=== PATIENT | female | born 1935 | race Caucasian/White ===

== ENCOUNTER 2017-05-22 14:54 | Emergency (ER) | payer MEDICARE, BC, OTHER ==
[2017-05-22] MEDS ORDERED: Acetaminophen 500 MG TAB ONE (15:49)
[2017-05-22] MEDS ORDERED: Ibuprofen 800 MG TAB ONE (15:52)
--- NOTE | 2017-05-22 16:20 | RAD ---
RADIOGRAPH CHEST 1 VIEW: HISTORY: An 81-year-old female with cough. FINDINGS: There is hyperinflation of the lungs, consistent with COPD. The thoracic aorta is tortuous and ectat ic. There is no evidence of air space density, pneumothorax, or pulmonary edema. The lateral costop hrenic angles are sharp. IMPRESSION: 1) No acute pulmonary findings. 2) Emphysema. 3) Ectasia of thoracic aorta. pooja [] POS: [facility]
[2017-05-22 16:26] LABS: #Lymphocytes 0.9 thou/uL (1.20-3.40); #Monocytes 0.8 thou/uL (0.11-0.59); #Neutrophils 8.4 thou/uL (1.40-6.50); %Eosinophils 0.4 % (0.0-10.0); %Monocytes 8.2 % (0.0-10.0); %Neutrophils 82.4 % (42.0-75.0); Hemoglobin 11.6 g/dL (12.0-16.0); Mean Corpuscular HGB CONC 32.5 g/dL (32.0-36.0); Mean Corpuscular Hemoglobin 29.3 pg (27.0-31.0); Mean Corpuscular Volume 90.1 fl (81.0-99.0); Mean Platelet Volume 6.2 fL (7.4-10.4); Platelet Count 184 thou/uL (130-400); Red Blood Cell (RBC) Count 3.96 mill/uL (4.20-5.40); White Blood Cell (WBC) Count 10.2 thou/uL (4.8-10.8)
[2017-05-22 16:49] LABS: ALT (SGPT) 31 U/L (8-55); AST (SGOT) 63 U/L (5-34); Albumin 3.2 g/dL (3.4-4.8); Alkaline Phosphatase 58 U/L (40-150); Anion Gap 13 mmol/L (10-20); BUN (Urea Nitrogen) 16 mg/dL (9.8-20.1); Calc. Creatinine Clearance 0 mL/min (70-130); Calcium 8.8 mg/dL (7.8-10.44); Carbon Dioxide 23 mmol/L (23-31); Chloride 101 mmol/L (98-107); Estimated GFR-MDRD 65; Globulin 3.7 g/dL (2.4-3.5); Glucose 87 mg/dL (83-110); Potassium 4.2 mmol/L (3.5-5.1); Protein, Total 6.9 g/dL (6.0-8.3); Sodium 133 mmol/L (136-145)
== END 2017-05-22 18:28 | disposition home or self-care (01) ==
LOC: ERS 14:54
DX: J11.1 Influenza due to unidentified influenza virus with other respiratory manifestations (principal); I48.91 Unspecified atrial fibrillation; E03.9 Hypothyroidism, unspecified; E11.9 Type 2 diabetes mellitus without complications; I10 Essential (primary) hypertension; Z87.891 Personal history of nicotine dependence; Z79.4 Long term (current) use of insulin; Z79.899 Other long term (current) drug therapy
CPT/HCPCS: 36415; 71045; 80053; 85025

== ENCOUNTER 2017-07-16 15:02 | Outpatient (CLI) | payer MEDICARE, BC, OTHER ==
[~2017-07-16 15:02] MED LIST: Iopamidol 370 76% 100 ML VIAL ONE
--- NOTE | 2017-07-16 16:44 | CT ---
CT BRAIN WITH AND WITHOUT IV CONTRAST: History: Dementia, worsening of the last few months. Patient has history of breast cancer in 1989. FINDINGS: There are changes of chronic small vessel ischemic disease in the periventricular white matter. The v entricular size is appropriate and the basal cisterns are patent. No evidence of infarct, hemorrhage, mass, midline shift, or abnormal extraaxial fluid collections are seen. No abnormal post contrast en hancement is identified. The bony calvarium is intact. The visualized paranasal sinuses and mastoid a ir cells are well aerated. IMPRESSION: No CT evidence of acute intracranial process or mass. POS: [facility]
== END 2017-07-16 15:03 | disposition home or self-care (01) ==
LOC: SCSCT 15:02
PROVIDERS: ATTEND Internal Medicine
DX: F03.90 Unspecified dementia, unspecified severity, without behavioral disturbance, psychotic disturbance, mood disturbance, and anxiety (principal)
CPT/HCPCS: 70470

== ENCOUNTER 2017-07-24 11:43 | Emergency (ER) | payer MEDICARE, BC, OTHER ==
[2017-07-24 12:46] LABS: #Basophils 0.1 thou/uL (0.0-0.2); #Lymphocytes 1.8 thou/uL (1.20-3.40); #Monocytes 0.6 thou/uL (0.11-0.59); #Neutrophils 6.6 thou/uL (1.40-6.50); %Basophils 0.9 % (0.0-1.0); %Eosinophils 0.5 % (0.0-10.0); %Monocytes 6.6 % (0.0-10.0); %Neutrophils 71.9 % (42.0-75.0); Hemoglobin 11.2 g/dL (12.0-16.0); Mean Corpuscular HGB CONC 31.9 g/dL (32.0-36.0); Mean Corpuscular Hemoglobin 27.1 pg (27.0-31.0); Mean Corpuscular Volume 85.1 fl (81.0-99.0); Mean Platelet Volume 6.3 fL (7.4-10.4); Platelet Count 175 thou/uL (130-400); RBC Distribution Width 13.9 % (11.5-14.5); Red Blood Cell (RBC) Count 4.13 mill/uL (4.20-5.40); White Blood Cell (WBC) Count 9.2 thou/uL (4.8-10.8)
[2017-07-24 12:56] LABS: Anion Gap 14 mmol/L (10-20); BUN (Urea Nitrogen) 11 mg/dL (9.8-20.1); Calc. Creatinine Clearance 0 mL/min (70-130); Calcium 8.8 mg/dL (7.8-10.44); Carbon Dioxide 28 mmol/L (23-31); Chloride 102 mmol/L (98-107); Estimated GFR-MDRD 59; Glucose 213 mg/dL (83-110); Sodium 140 mmol/L (136-145)
[2017-07-24] MEDS ORDERED: Sodium Chloride 0.9% 100 ML ONE (13:34)
[2017-07-24] MEDS ORDERED: Furosemide 40 MG/4 ML VIAL ONE (13:34)
[2017-07-24] MEDS ORDERED: CEFAZOLIN 1 GM VIAL ONE (13:34)
--- NOTE | 2017-07-24 13:34 | ULT ---
BILATERAL LOWER EXTREMITY VENOUS DOPPLER ULTRASOUND: Date: 07/24/17 HISTORY: Bilateral lower extremity edema, left-sided pain. TECHNIQUE: Chavez scale ultrasound with color flow and spectral Doppler imaging of the deep venous systems of the lower extremities was performed bilaterally. FINDINGS: There is good flow, compression, and augmentation noted in the common femoral, femoral, deep femoral, popliteal, posterior tibial, and greater saphenous veins on either side. IMPRESSION: No evidence of deep venous thrombosis in either lower extremity. POS: [facility]
== END 2017-07-24 14:32 | disposition home or self-care (01) ==
LOC: SCSER 11:43
DX: R60.0 Localized edema (principal); I48.91 Unspecified atrial fibrillation; E03.9 Hypothyroidism, unspecified; E11.9 Type 2 diabetes mellitus without complications; I10 Essential (primary) hypertension; Z87.891 Personal history of nicotine dependence; Z79.84 Long term (current) use of oral hypoglycemic drugs; Z79.899 Other long term (current) drug therapy
CPT/HCPCS: 36415; 80048; 83880; 85025; 93970; 96365; 96375; J0690; J1940; J7050

== ENCOUNTER 2017-10-29 12:32 | Outpatient (CLI) | payer MEDICARE, BC, OTHER | END 2017-10-29 12:33 | disposition home or self-care (01) | LOC: ULT 12:32 | PROVIDERS: ATTEND Internal Medicine | DX: R01.1 Cardiac murmur, unspecified (principal); I08.2 Rheumatic disorders of both aortic and tricuspid valves | CPT/HCPCS: 93306 ==

== ENCOUNTER 2017-12-09 19:34 | Inpatient (IN) | payer MEDICARE, BC, OTHER ==
[2017-12-09 20:09] LABS: Bilirubin Negative (Negative); Blood, Urine Negative (Negative); Clarity CLEAR (Clear); Glucose, Urine (Dipstick) Negative (Negative); Leukocyte Negative (Negative); Nitrite Negative (Negative); Protein, Urine (Dipstick) 300 mg/dL (Neg-Trace); Specific Gravity, Urine 1.011 (1.002-1.036); Urobilinogen 0.2 mg/dL (0.2-1.0)
[2017-12-09 20:12] LABS: Bacteria/HPF None Seen HPF (None Seen); Hyaline Casts/LPF 4-6 HYALINE CAST LPF (0-3 Hyaline); Pathc Cast-AUWi Flag 1.01 (0-2.49); RBC/HPF 0-3 HPF (0-3); Squamous Epithelial 0-3 HPF (0-3); WBC/HPF 0-3 HPF (0-3)
[2017-12-09 20:18] LABS: #Eosinphils 0.1 thou/uL (0.0-0.7); #Lymphocytes 2.6 thou/uL (1.20-3.40); #Monocytes 0.9 thou/uL (0.11-0.59); #Neutrophils 7.2 thou/uL (1.40-6.50); %Basophils 0.4 % (0.0-1.0); %Eosinophils 1.3 % (0.0-10.0); %Lymphocytes 23.7 % (21.0-51.0); %Monocytes 7.9 % (0.0-10.0); %Neutrophils 66.6 % (42.0-75.0); Hemoglobin 10.6 g/dL (12.0-16.0); Mean Corpuscular HGB CONC 33.3 g/dL (32.0-36.0); Mean Corpuscular Hemoglobin 27.5 pg (27.0-31.0); Mean Corpuscular Volume 82.5 fL (78.0-98.0); Mean Platelet Volume 6.5 fL (7.4-10.4); Platelet Count 209 thou/uL (130-400); RBC Distribution Width 13.9 % (11.5-14.5); Red Blood Cell (RBC) Count 3.85 mill/uL (4.20-5.40); White Blood Cell (WBC) Count 10.7 thou/uL (4.8-10.8)
[2017-12-09 20:39] LABS: ALT (SGPT) 18 U/L (8-55); AST (SGOT) 26 U/L (5-34); Albumin 3.6 g/dL (3.4-4.8); Alkaline Phosphatase 95 U/L (40-150); Anion Gap 16 mmol/L (10-20); BUN (Urea Nitrogen) 16 mg/dL (9.8-20.1); Bilirubin, Total 0.4 mg/dL (0.2-1.2); Calc. Creatinine Clearance 0 mL/min (70-130); Calcium 8.8 mg/dL (7.8-10.44); Carbon Dioxide 22 mmol/L (23-31); Chloride 103 mmol/L (98-107); Estimated GFR-MDRD 53; Globulin 3.8 g/dL (2.4-3.5); Glucose 141 mg/dL (83-110); Potassium 4.7 mmol/L (3.5-5.1); Protein, Total 7.4 g/dL (6.0-8.3); Sodium 136 mmol/L (136-145)
[2017-12-09 20:42] LABS: CKMB 1.8 ng/mL (0-6.6)
[2017-12-09 20:44] LABS: Troponin I 0.306 ng/mL (< 0.028)
--- NOTE | 2017-12-09 20:55 | CT ---
CT OF THE BRAIN WITHOUT CONTRAST: 12/09/17 HISTORY: Syncope, fall. FINDINGS: Comparison is made with exam of 11/03/16. Changes of chronic small vessel ischemic disease are again noted. The ventricular size is stable and the basilar cisterns patent. No evidence of acute infarct, hemorrhage, midline shift or abnormal extr a-axial fluid collections are seen. The bony calvarium is intact. The visualized paranasal sinuses an d mastoid air cells are well aerated. Soft tissue hematoma is seen in the right orbital region. IMPRESSION: No CT evidence of acute intracranial process. POS: [facility]
--- NOTE | 2017-12-09 20:57 | RAD ---
PORTABLE CHEST ONE VIEW: 12/09/17 at 8:25 p.m. HISTORY: Syncope. FINDINGS: comparison is made with the exam of 10/06/14. The heart size is borderline. The aorta is tortuous. The lungs are well expanded without lobar consol idation, pneumothoraces or pleural effusions. There are postop changes in the lower cervical spine. IMPRESSION: No radiographic evidence of acute cardiopulmonary process. POS: [facility]
--- NOTE | 2017-12-09 21:02 | CT ---
CT CERVICAL SPINE WITH CORONAL AND SAGITTAL REFORMATIONS: 12/09/17 HISTORY: Fall, neck pain. FINDINGS/IMPRESSION: Multilevel degenerative changes are present. There are postop changes of anterior spinal fusion with plate and screws at C5-6-7 levels in good position and alignment. Calcification of the posterior long itudinal ligament at C3-4 level is again noted as on 12/07/13. No acute fracture or subluxation is rommel ntified. No facet malalignment is noted. POS: [facility]
--- NOTE | 2017-12-09 21:04 | CT ---
CT FACIAL BONES WITH CORONAL AND SAGITTAL REFORMATIONS: 12/09/17 HISTORY: Fall, trauma to the face, right sided facial pain. FINDINGS/IMPRESSION: The facial bones appear intact. No facial bone fracture is seen. No temporomandibular dislocation is identified. Soft tissue hematoma is seen in the right lateral orbital and periorbital regions. POS: [facility]
[2017-12-09] MEDS ORDERED: Aspirin 325 MG TAB ONE (21:29)
[2017-12-09] MEDS ORDERED: Nitroglycerin 2% Ointment 1 INCH/1 GM Packet ONE (21:52)
[2017-12-09 22:19] LABS: Digoxin 1.05 ng/mL (0.8-2.0)
[2017-12-09 23:35] LABS: Troponin I 0.327 ng/mL (< 0.028)
[2017-12-10] MEDS ORDERED: hydrALAZINE 20 MG/ML VIAL ONE (01:11)
[2017-12-10] MEDS ORDERED: Ondansetron HCl/PF 4 MG/2 ML Vial IVP PRN (02:48)
[2017-12-10] MEDS ORDERED: Acetaminophen 325 MG TAB PO PRN ×2 (02:48→03:00)
[2017-12-10] MEDS ORDERED: Ondansetron ODT 4 MG TAB SL PRN (02:48)
[2017-12-10] MEDS ORDERED: Cyclobenzaprine 10 MG TAB PO PRN (03:00)
[2017-12-10] MEDS ORDERED: Nitroglycerin 0.4 MG TAB (25 Tab Bottle) SL PRN (03:00)
[2017-12-10] MEDS: Labetalol HCl 100 MG/20 ML VIAL IVPB PRN ×2 (03:31→09:14)
[2017-12-10 03:59] VITALS: BMI 28.4
[2017-12-10] MEDS ORDERED: Dextrose 5% in Water 1,000 ML IV PRN (04:35)
[2017-12-10] MEDS ORDERED: Dextrose 50% Abboject 50 ML SYRINGE SLOW IVP PRN (04:35)
[2017-12-10 05:43] LABS: #Eosinphils 0.1 thou/uL (0.0-0.7); #Lymphocytes 2.5 thou/uL (1.20-3.40); #Monocytes 0.8 thou/uL (0.11-0.59); #Neutrophils 6.4 thou/uL (1.40-6.50); %Basophils 0.3 % (0.0-1.0); %Eosinophils 1.5 % (0.0-10.0); %Monocytes 7.7 % (0.0-10.0); %Neutrophils 65.6 % (42.0-75.0); Hemoglobin 9.8 g/dL (12.0-16.0); Mean Corpuscular HGB CONC 32.9 g/dL (32.0-36.0); Mean Platelet Volume 6.4 fL (7.4-10.4); Platelet Count 198 thou/uL (130-400); RBC Distribution Width 14.2 % (11.5-14.5); Red Blood Cell (RBC) Count 3.61 mill/uL (4.20-5.40); White Blood Cell (WBC) Count 9.8 thou/uL (4.8-10.8)
[2017-12-10 05:55] LABS: Anion Gap 13 mmol/L (10-20); BUN (Urea Nitrogen) 13 mg/dL (9.8-20.1); Calc. Creatinine Clearance 68 mL/min (70-130); Carbon Dioxide 25 mmol/L (23-31); Chloride 105 mmol/L (98-107); Estimated GFR-MDRD 64; Glucose 146 mg/dL (83-110); Potassium 3.9 mmol/L (3.5-5.1); Sodium 139 mmol/L (136-145)
[2017-12-10] MEDS ORDERED: Levothyroxine 150 MCG TAB PO SCH (06:00)
[2017-12-10 06:01] LABS: Critical Call Chem Troponin I RESULT DECREASING; Troponin I 0.322 ng/mL (< 0.028)
[2017-12-10] MEDS ORDERED: Rivaroxaban 10 MG TAB PO SCH (09:00)
[2017-12-10] MEDS: HYDROcodone/Acetaminophen 5/325 mg Tablet PO PRN ×2 (09:10→16:30)
[2017-12-10] MEDS: Digoxin 0.25 MG TAB PO SCH (09:13)
--- NOTE | 2017-12-10 10:20 | HP ---
TIME OF EVALUATION: 01:05 a.m. PRIMARY CARE PHYSICIAN: Dr. Harper. CODE STATUS: FULL CODE. CHIEF COMPLAINT: Fall. HISTORY OF PRESENT ILLNESS: This is an 82-year-old female patient with past medical history of breas t cancer, atrial fibrillation, hypothyroidism, diabetes, hypertension, who came to the hospital after having an episode of fall, she reported she was carrying some groceries, she got lightheaded and fel l, she does not recall complete loss of consciousness, no clear triggers, no alleviating factors. In the past, the patient had been treated for atrial fibrillation; at this time, the patient reported n o palpitations, no clear triggers, no alleviating factors. The symptoms had a sudden onset. Of note , the patient is troponin was found to be 0.3. For that reason, we are going to keep her in [facility]. She follows with Dr. Cifuentes who is her grades 1 thru 6 visiting teacher as outpatient. She was also found to have high blood pressure on presentation. REVIEW OF SYSTEMS: Constitutional: No fever, no chills, generalized weakness. Respiratory: No cou gh or sputum production or shortness of breath. Cardiovascular: No chest pain, palpitations, or rigo rtness of breath. Gastrointestinal: No nausea, no vomiting, diarrhea, or abdominal pain. Central N ervous System: The patient has dizziness, feeling lightheaded, possible near syncope. Genitourinary : No burning on urination. Extremities: Bilateral leg swelling. All other systems reviewed and ne gative except for the findings mentioned above. PAST MEDICAL HISTORY: Positive for breast cancer, hypothyroidism, atrial fibrillation, diabetes, hyp ertension. PAST SURGICAL HISTORY: The patient had bilateral knee replacement, cardiac catheterization, left mas tectomy, appendectomy, cholecystectomy. PSYCHIATRIC HISTORY: Depression. SOCIAL HISTORY: No drugs, no alcohol. ALLERGIES: BACTRIM. REPORTED MEDICATIONS: Metformin, Eliquis, lisinopril, atorvastatin, Zetia, levothyroxine, cephalexin , Singulair, digoxin, [place], Levemir, Humalog, clobetasol, Zoloft. PHYSICAL EXAMINATION: VITAL SIGNS: On presentation, blood pressure 188/143 with heart rate 57, respiratory rate was 15, te mperature 98.6, pain 6/10, O2 saturation 95 on room air. GENERAL APPEARANCE: The patient is alert, oriented, in no any acute distress. HEAD AND EYES: Normal conjunctivae. Moist oral mucosa. Anicteric. The patient has trauma on the r ight forehead due to the fall. NECK: No JVD. RESPIRATORY: Bilateral air entry. No rales, no wheezes. Symmetric expansion. CARDIOVASCULAR: Normal rate, regular rhythm. No murmurs, no gallop. EXTREMITIES: Bilateral leg edema. ABDOMEN: Soft, normal bowel sounds. MUSCULOSKELETAL: Baseline range of motion and strength. No tenderness. SKIN: Warm and intact. No pallor, no rash, no redness. NEUROLOGIC: Baseline sensorium. No evidence of any new focal weakness. Baseline speech. Cranial n erve seems to be intact. PSYCHIATRIC: The patient is in good mood. No anxiety. Oriented. Optimal judgement. DIAGNOSTIC DATA: EKG was reviewed and discussed with the performing physician from ER. The patient has atrial fibrillation with a junctional pacemaker, left anterior fascicular block, minimal voltage for LVH, nonspecific ST-T wave abnormalities. No evidence of any acute ischemic event. Cardiology w as reviewed. The patient's head CT was negative, Neck, cervical spine, CT head negative. Chest film s are negative, interpretation by my radiologist. LABORATORY DATA: Reviewed. White count 10, hemoglobin 10, MCV 82, platelet count 209,000. Sodium 1 36, potassium 4.7, chloride 103, carbon dioxide 22, anion gap 16, creatinine 1.0, GFR 53, glucose 141 . LFTs are negative. Troponin 0.3. UA was negative. Digoxin 1.0. ASSESSMENT AND PLAN: The patient will be placed in the hospital for the following medical problem: 1. Positive troponin, possible Mac-LC-[id number] myocardial infarction type 2. Due to underlying hyp ertension, underlying atrial fibrillation, we will trend troponins less than 03, call Dr. Cifuentes in the morning for customer care assistant with this case and overall recommendations. We will reconcile home medica tions. 2. Possible near syncope, monitor on tele, pacemaker seems to be working. We will follow Cardiology recommendations. Echo was done in 10/2017 and showed EF 50-55%. Left ventricular size is mildly in creased, aortic valve calcification. 3. Status post fall, patient will need to increase safety measures at home. 4. History of atrial fibrillation/flutter, patient is on Eliquis and will continue for now. 5. Uncontrolled hypertension, reconcile home medication, IV p.r.n. medications for tumor control. 6. Hypothyroidism, reconcile home medications. 7. History of diabetes, it is controlled. We will reconcile home meds, sliding scale for optimal co ntrol. 8. Deep venous thrombosis prophylaxis, the patient is on Eliquis.
--- NOTE | 2017-12-10 14:45 | PDOC.PN ---
- Subjective Encounter Start Date: 12/10/17 Encounter Start Time: 14:30 Subjective: f/u for fall and elevated troponins. States feeling hungry. No CP or SOB -: Hx of falls recently - Objective Resuscitation Status: Resuscitation Status FULL:Full Resuscitation MAR Reviewed: Yes Vital Signs & Weight: Vital Signs (12 hours) Temp Pulse Resp BP BP Pulse Ox 12/10/17 11:07 98.3 F 58 L 16 174/70 H 95 12/10/17 10:13 178/75 H 12/10/17 09:14 68 199/83 H 12/10/17 09:13 68 12/10/17 08:15 98.3 F 58 L 16 93 L 12/10/17 07:45 97.8 F 68 16 199/83 H 93 L 12/10/17 04:00 98.5 F 66 23 H 183/78 H 92 L 12/10/17 03:31 68 186/85 H 12/10/17 02:52 98.5 F 66 23 H 186/85 H 98 Weight Weight 181 lb 12.8 oz Result Diagrams: 12/10/17 05:20 12/10/17 05:20 Additional Labs: Accuchecks 12/10/17 05:45 POC Glucose 147 H Laboratory Tests 12/09/17 12/09/17 12/09/17 20:08 20:08 20:08 WBC 10.7 Hgb 10.6 L Creatinine 1.00 Estimated GFR (MDRD) 53 Troponin I 0.306 H* Digoxin 12/09/17 12/09/17 12/10/17 20:08 22:59 05:20 WBC Hgb Creatinine Estimated GFR (MDRD) Troponin I 0.327 H* 0.322 H* Digoxin 1.05 Radiology Reviewed by me: Yes (CT brain - negative) EKG Reviewed by me: Yes (Tele - SR, PVC's) Phys Exam - Physical Examination Constitutional: NAD R periorbital hematoma HEENT: PERRLA, sclera anicteric, oral pharynx no lesions Neck: no nodes, no JVD, supple, full ROM Respiratory: no wheezing, no rales, no rhonchi, clear to auscultation bilateral II/ JOANNA in RUSB Cardiovascular: RRR, no rub, gallop Gastrointestinal: soft, non-tender, no distention, positive bowel sounds Musculoskeletal: no edema, pulses present Neurological: non-focal, normal sensation, moves all 4 limbs Psychiatric: normal affect, A&O x 3 Skin: normal turgor, cap refill <2 seconds Dx/Plan (1) Near syncope Status: Acute Comment: ? syncope vs fall, check carotid sono, orthrostatic vitals, check TSH, FT4, Tele monitoring (2) Closed head injury Code(s): S09.90XA - UNSPECIFIED INJURY OF HEAD, INITIAL ENCOUNTER Status: Acute Comment: s/p fall, local care, PT evaluation (3) NSTEMI (non-ST elevated myocardial infarction) Code(s): I21.4 - NON-ST ELEVATION (NSTEMI) MYOCARDIAL INFARCTION Status: Acute Comment: Suspected, Cardiology consultation, ASA 81mg daily (4) HTN (hypertension) Code(s): I10 - ESSENTIAL (PRIMARY) HYPERTENSION Status: Chronic Qualifiers: Hypertension type: essential hypertension Qualified Code(s): I10 - Essential (primary) hypertension Comment: Labile, confirm home BP regimen, serial monitoring (5) Falls Code(s): W19.XXXA - UNSPECIFIED FALL, INITIAL ENCOUNTER Status: Acute Comment: Recurrent falls, PT/OT evaluation, fall risk precautions - Plan plan discussed w/ family, PT/OT, mental health social worker, out of bed/ambulate, DVT proph w/SCDs Stable currently -: ASA 81mg daily -: Cardiology consult pending -: Check Carotid sono, orthostatic vitals -: AM lab: BMP, CBC, TSH, FT4, Stool hemoccult * .
[2017-12-10] MEDS ORDERED: Sodium Chloride 0.9% 1,000 ML IV SCH (15:00)
--- NOTE | 2017-12-10 16:24 | ULT ---
ULTRASOUND DOPPLER DUPLEX CAROTID: 12/10/17 HISTORY: 82-year-old female with near syncopal episode and fall. TECHNIQUE: Chavez scale, color flow and spectral analysis, of major arteries of the neck. FINDINGS: There is moderate calcified plaque at the bilateral proximal internal carotid arteries, including the ir origins at the carotid bulbs, and also at proximal external carotid arteries. Highest peak systolic velocities in the internal carotids are 65 cm/s on the right and 70 cm/s on the left. ICA/CCA ratios are bilaterally 0.9. Vertebral artery flow is antegrade bilaterally. IMPRESSION: 1. Atherosclerotic plaque at the bilateral carotid bulbs. 2. No evidence of hemodynamically significant stenosis. POS: [facility]
[2017-12-10] MEDS: Insulin Regular 300 UNITS/3 ML VIAL SC PRN ×2 (18:18→21:09)
[2017-12-10] MEDS ORDERED: Simvastatin 40 MG TAB PO SCH (21:00)
[2017-12-10] MEDS ORDERED: Lisinopril 10 MG TAB PO SCH (21:00)
[2017-12-10] MEDS: Lisinopril 20 MG TAB PO SCH (21:07)
[2017-12-11] MEDS ORDERED: HYDROcodone/Acetaminophen 7.5/325 mg Tablet PO PRN (03:00)
--- NOTE | 2017-12-11 03:17 | CON ---
DATE OF CONSULTATION: 12/10/2017 HISTORY: Charlotte Kirkland is an 82-year-old, white female, initially evaluated in 07/1999 at [facility]. She had chest pain for 3-4 days, chest heaviness at rest or with exertion. This would last for 30 minutes, radiating to her left arm, sometimes left side of her face. She had episodes of diaphoresis, but no nausea or vomiting. Ultimately, she underwent cardiac catheterization and was found to have minimal coronary artery disease. She was seen again at [facility] in 07/2009 when she presented with atrial fibrillation with fast ventricular response. Echocardiogram revealed an ejection fraction of 55%-60% with left atrium of 4.0 cm. She underwent Cardiolite testing, which revealed no reversible ischemia. However, ultimately , the decision was made to have her undergo cardiac catheterization, which revealed a 30% mid LAD, 10% proximal circumflex, 20% proximal RCA, 30% mid RCA, and 30% right posterior descending. Ejection fraction was 50% to 55%. She was discharged on a 30-day monitoring and continued to have episodes of paroxysmal atrial fibrillation. She was referred to the trading manager in 08/2009. At that time, she was on verapamil and digoxin, which did not seem to totally control her atrial fibrillation. She was started on flecainide 50 b.i.d. I did not see her again until 07/2013 when she presented with an episode of near syncope at home. She had been feeling weak and was found to be in atrial fibrillation with fast ventricular response of 147 per minute. She was admitted and stated that she was only taking flecainide 50 daily instead of b.i.d. because it made her dizzy. She was very evasive about how long she had not been taking it daily. She was admitted and placed on IV Cardizem and converted to sinus rhythm. Echo was technically difficult with ejection fraction of 55%-60%, aortic valvular fibrosis, mitral annular calcification, moderate mitral regurgitation, mild aortic insufficiency, and mild tricuspid regurgitation. We discussed medical therapy versus radiofrequency ablation. She decided to take the flecainide on a regular b.i.d. basis. She was on Xarelto at that time. After discharge, she continued to have episodes of atrial fibrillation. In 07/2013, she presented with a rapid heart rate, shortness of breath, and associated chest pressure. Cardiac enzymes were negative. Chest pain resolved once her rate was controlled. She was placed on intravenous Cardizem and began to have more atrial flutter. She underwent radiofrequency ablation of the atrial flutter and electrical cardioversion of her atrial fibrillation. Sotalol was also added. With sotalol and flecainide, her heart rate dropped into the 30s, and the flecainide was discontinued. In 01/2014, she was seen in the office and only complained of dyspnea on exertion when she walked very fast. She continued to remain in sinus rhythm on the sotalol. In 02/2014, she was admitted after eating pancakes at night and then she felt her heart beating rapidly. She had some chest pressure associated with that. She was found to be in atrial fibrillation with fast ventricular response, placed on Cardizem drip. She continued to take the Xarelto as well as sotalol at home. She then underwent transesophageal echo by Dr. Enciso and had no intracardiac thrombus. She underwent DC cardioversion and had sinus bradycardia. Then, in 04/2014, she underwent a atrial fibrillation ablation in [place]. She was continued on her sotalol. In 08/2014, she was admitted with shortness of breath and O2 saturations in the 80s. She was treated with IV Rocephin. She stated that during the 6 months prior to that admission, she continued to have breakthrough episodes that will last anywhere from several minutes to all night long with the atrial fibrillation. In 09/2014, she had increased cough, placed on Ceftin 500 b.i.d. by primary physician. She returned several days later with increasing mental status changes, worsening shortness of breath, and was admitted. Sotalol was discontinued due to interaction with the antibiotics that needed to be given. She was then noted to have heart rate in the 170s to 180s. EKG revealed a narrow complex tachycardia. She was transferred to telemetry and started on IV Cardizem. In 12/2014, she underwent radiofrequency ablation of atrial flutter in [place]. In 09/2016, she underwent monitoring and was found to have frequent episodes of atrial fibrillation, although the rate was fairly well controlled. She was last seen in the office in 10/2016, and she was to return 4 months later for followup, but never did. She is uncertain if she has episodes of arrhythmias at home, but does notice at that time to have chest pressure at rest and may last up to 30 minutes. Yesterday, she was carrying groceries and states that she tripped over her feet and fell to the floor, striking her head. She remembers falling. She remembers hitting the floor. She has not had any recent chest discomfort, did not have any yesterday. She has had somewhat elevated troponin I. Cardiology consultation was requested. PAST MEDICAL HISTORY: Diabetes, paroxysmal atrial fibrillation, history of atrial flutter, hypertension, hypercholesterolemia, mild coronary artery disease , breast cancer. OPERATIONS: Left modified mastectomy for breast cancer, bilateral total knee replacements, appendectomy. She had gross hematuria and had a negative cystoscopy, cholecystectomy. MEDICATIONS: Flexeril p.r.n., digoxin 0.25 daily, Humalog p.r.n., hydrocodone p.r.n., Lantus 30 units q.p.m., Synthroid 150 mcg daily, lisinopril 10 at bedtime, metformin 1000 mg b.i.d., nitroglycerin p.r.n., Xarelto 20 daily, simvastatin 40 at bedtime. ALLERGIES: BACTRIM. SOCIAL HISTORY: She smoked 2-3 packs per day, but stopped 33 years ago. She does not drink. FAMILY HISTORY: Father had myocardial infarction in his 60s and 70s. Brother had bypass surgery. Another brother and sister had cardiomyopathy. REVIEW OF SYSTEMS: A 12-point review of systems is otherwise unremarkable. PHYSICAL EXAMINATION: VITAL SIGNS: Blood pressure 176/70, pulse of 55. HEENT: PERRL. She does have hematoma and ecchymosis on the right side of her scientologist area. LUNGS: Clear. CARDIAC: S1, S2 were normal. There is a 2/6 systolic murmur in the aortic area. ABDOMEN: Normal bowel sounds without tenderness or organomegaly. EXTREMITIES: Revealed no clubbing or cyanosis. She does have 2+ pretibial edema. NEUROLOGIC: Grossly intact. SKIN: Warm and dry. LABORATORY DATA AND X-RAY FINDINGS: EKG reveals sinus bradycardia at times with short runs of possible atrial fibrillation. She also has had an episode on the monitor of junctional rhythm with heart rates in the upper 30s at 10:00 a.m. today. Echocardiogram on 10/29/2017 revealed ejection fraction of 50%-55% with severe mitral annular calcification, no mitral regurgitation, aortic regurgitation, calcification of the aortic valve with mild aortic stenosis with a peak gradient of 60 mm, mild tricuspid regurgitation. The left atrium is moderately enlarged. Digoxin level 1.05. Sodium 139, potassium 3.9, chloride 105, carbon dioxide 25, BUN 13, creatinine 0.85. Troponin I is up to 0.327. Hemoglobin 9.8, hematocrit 29.6, white count 9800, platelets 198,000. IMPRESSION: 1. Elevated troponin, probably secondary to demand ischemia from poorly controlled hypertension. 2. Status post atrial fibrillation ablation in 04/2014 as well as atrial flutter ablation in 12/2014. 3. The patient continues to have episodes of paroxysmal atrial fibrillation. Monitor for 30 days in 09/2016 revealed that she did not have any significant bradycardic or tachycardic episodes. 4. Minimal coronary artery disease on last catheterization in 2009. 5. Hypertension. 6. Hyperlipidemia. 7. Diabetes. 8. Former smoker. 9. History of left modified radical mastectomy for breast cancer. PLAN: The patient had 2 cardiac catheterizations in the past, only minimal coronary artery disease being found. She will undergo [facility] Cardiolite testing to further evaluate this. She has poorly controlled hypertension at this time as well as development of peripheral edema, may have some degree of diastolic heart failure. Her lisinopril will be increased to 10 mg b.i.d., and she also will be diuresed starting tomorrow. She also had an episode of junctional bradycardia, and her rhythm will continue to be monitored. Addendum: On further review of her medicines, she was given labetalol 10 mg IV approximately 45 minutes prior to the episode of junctional bradycardia. Labetalol will therefore be discontinued and beta andrez should be avoided. Instead, her dose of lisinopril will be increased. [facility]TDD
[2017-12-11] MEDS: Furosemide 20 MG/2 ML VIAL SLOW IVP SCH ×2 (06:23→13:27)
[2017-12-11] MEDS: Levothyroxine 175 MCG TAB PO SCH (06:23)
[2017-12-11 06:40] LABS: Hemoglobin 10.6 g/dL (12.0-16.0); Mean Corpuscular HGB CONC 32.3 g/dL (32.0-36.0); Mean Corpuscular Hemoglobin 26.3 pg (27.0-31.0); Mean Corpuscular Volume 81.3 fL (78.0-98.0); Mean Platelet Volume 6.6 fL (7.4-10.4); Platelet Count 205 thou/uL (130-400); RBC Distribution Width 14.3 % (11.5-14.5); Red Blood Cell (RBC) Count 4.04 mill/uL (4.20-5.40)
[2017-12-11 06:46] LABS: Anion Gap 14 mmol/L (10-20); BUN (Urea Nitrogen) 13 mg/dL (9.8-20.1); Calc. Creatinine Clearance 65 mL/min (70-130); Calcium 8.7 mg/dL (7.8-10.44); Carbon Dioxide 22 mmol/L (23-31); Chloride 102 mmol/L (98-107); Estimated GFR-MDRD 62; Glucose 213 mg/dL (83-110); Potassium 4.1 mmol/L (3.5-5.1); Sodium 134 mmol/L (136-145)
[2017-12-11 07:01] LABS: Free T4 (Free Thyroxine) 1.26 ng/dL (0.70-1.48); Thyroid Stimulating Hormone 0.3758 uIU/mL (0.35-4.94)
[2017-12-11 07:14] LABS: Band 4 % (5-11); Lymphocytes 13 % (21-51); MDiff Complete? YES; Monocytes 9 % (0-10); Neutrophil 73 % (42-75); RBC Morphology Normal
[2017-12-11] MEDS ORDERED: Regadenoson 0.4 MG/5 ML SYRINGE ONE (09:38)
[2017-12-11] MEDS: Potassium Chloride 10 MEQ TAB PO SCH (13:03)
[2017-12-11] MEDS: Digoxin 0.25 MG TAB PO SCH (13:03)
[2017-12-11] MEDS: Aspirin 81 mg Enteric Coated Tablet PO SCH (13:03)
[2017-12-11] MEDS: Apixaban 5 MG TAB PO SCH ×2 (13:03→20:28)
[2017-12-11] MEDS: Insulin Regular 300 UNITS/3 ML VIAL SC PRN ×3 (13:04→20:38)
--- NOTE | 2017-12-11 13:28 | NM ---
NUCLEAR MEDICINE CARDIAC STRESS TEST WITH EJECTION FRACTION: HISTORY: Coronary artery disease. Atrial fibrillation. Atrial flutter. Diabetes. Dyslipidemia COMPARISON: Study from 2013. TECHNIQUE: The exam was performed using Lexiscan protocol. Stress and rest were performed after the intravenous administration of 28.1 and 9.5 millicuries of technetium 99m sestamibi, respectively. There is adequate left ventricular uptake of the radiotracer. There is scar of the apex and the mid septal wall. Normal wall motion. Calculated ejection fraction is 67%. IMPRESSION: Mid septal wall and apex scar. No reversible ischemia or abnormal wall motion. Normal ejection frac tion. POS: [facility]
[2017-12-11] MEDS ORDERED: Amlodipine 5 MG TAB PO SCH (13:30)
--- NOTE | 2017-12-11 13:49 | PDOC.PN ---
- Subjective Encounter Start Date: 12/11/17 Encounter Start Time: 13:35 Subjective: f/u for near syncope with [facility] completing PEST CONTROL PILOT today due to elevated troponin -: Feels ok overall but had some confusion overnight with low-grade temp. - Objective Resuscitation Status: Resuscitation Status FULL:Full Resuscitation MAR Reviewed: Yes Vital Signs & Weight: Vital Signs (12 hours) Temp Pulse Resp BP BP BP Pulse Ox 12/11/17 13:27 76 197/87 H 12/11/17 13:03 76 12/11/17 12:00 98.8 F 71 16 197/87 H 96 12/11/17 07:50 98.8 F 76 16 170/80 H 94 L 12/11/17 04:05 98.6 F 86 16 169/80 H 95 12/11/17 02:40 98.3 F 78 20 138/80 93 L Weight Weight 181 lb 12.8 oz Result Diagrams: 12/11/17 05:38 12/11/17 05:38 Additional Labs: Accuchecks 12/11/17 12/11/17 12/10/17 12:54 05:43 20:37 POC Glucose 297 H 217 H 260 H 12/10/17 12/10/17 16:27 11:25 POC Glucose 191 H 173 H Microbiology 12/11/17 12:00 Stool Stool Occult Blood (JOSUE) - Final Laboratory Tests 12/09/17 12/09/17 12/09/17 20:08 20:08 20:08 WBC 10.7 Hgb 10.6 L Creatinine 1.00 Estimated GFR (MDRD) 53 Troponin I 0.306 H* Digoxin 12/09/17 12/09/17 12/10/17 20:08 22:59 05:20 WBC Hgb Creatinine Estimated GFR (MDRD) Troponin I 0.327 H* 0.322 H* Digoxin 1.05 12/10/17 05:20 WBC 9.8 Hgb Creatinine Estimated GFR (MDRD) Troponin I Digoxin Radiology Reviewed by me: Yes (PEST CONTROL PILOT - no reversible ischemia, EF 67%) EKG Reviewed by me: Yes (Tele - SR) Phys Exam - Physical Examination Constitutional: NAD R periorbital hematoma HEENT: PERRLA, sclera anicteric, oral pharynx no lesions Neck: no nodes, no JVD, supple, full ROM Respiratory: no wheezing, no rales, no rhonchi, clear to auscultation bilateral S1, S2 Cardiovascular: RRR, no significant murmur, no rub, gallop Gastrointestinal: soft, non-tender, no distention, positive bowel sounds Musculoskeletal: no edema, pulses present Neurological: normal sensation, moves all 4 limbs Psychiatric: normal affect, A&O x 3 Skin: normal turgor, cap refill <2 seconds Dx/Plan (1) Near syncope Status: Acute Comment: ? syncope vs fall, likely due to BP fluctuations and ? bradycardic episode, continue tele monitoring, ischemic workup negative to date (2) Closed head injury Code(s): S09.90XA - UNSPECIFIED INJURY OF HEAD, INITIAL ENCOUNTER Status: Acute Comment: s/p fall, local care, PT evaluation, supportive mgmt (3) Demand ischemia of myocardium Code(s): I24.8 - OTHER FORMS OF ACUTE ISCHEMIC HEART DISEASE Status: Acute Comment: PEST CONTROL PILOT negative for reversible ischemia, continue ASA 81mg daily, Lipitor (4) HTN (hypertension) Code(s): I10 - ESSENTIAL (PRIMARY) HYPERTENSION Status: Chronic Qualifiers: Hypertension type: essential hypertension Qualified Code(s): I10 - Essential (primary) hypertension Comment: Labile, confirm home BP regimen, serial monitoring, add Norvasc 5mg daily (5) Falls Code(s): W19.XXXA - UNSPECIFIED FALL, INITIAL ENCOUNTER Status: Acute Comment: Recurrent falls, PT/OT evaluation, fall risk precautions - Plan plan discussed w/ family, PT/OT, social work associate, out of bed/ambulate, DVT proph w/SCDs Stable currently -: Start Norvasc 5mg daily -: Continue Lisinopril 10mg BID -: Continue ASA, Lipitor -: PT evaluation for mobilization and functional assessment * AM lab: CBC * Likely home in am
[2017-12-11] MEDS: Lisinopril 20 MG TAB PO SCH (20:27)
[2017-12-11] MEDS: Insulin Glargine 30 UNITS in Pre-Filled Syringe SC SCH (20:34)
[2017-12-11] MEDS ORDERED: Cephalexin 250 MG CAP PO SCH (21:00)
[2017-12-11] MEDS ORDERED: Montelukast Sodium 10 mg Tablet PO SCH (21:00)
[2017-12-11] MEDS ORDERED: Atorvastatin Calcium 40 MG TAB PO SCH (21:00)
[2017-12-11] MEDS ORDERED: Digoxin 0.25 MG TAB PO SCH (21:00)
[2017-12-11] MEDS ORDERED: Lisinopril 2.5 MG TAB PO SCH (21:00)
[2017-12-11] MEDS ORDERED: Loratadine 10 MG TAB PO SCH (21:00)
[2017-12-12] MEDS: Furosemide 20 MG/2 ML VIAL SLOW IVP SCH ×2 (05:11→13:46)
[2017-12-12] MEDS: Levothyroxine 175 MCG TAB PO SCH (05:11)
[2017-12-12 05:32] LABS: Hemoglobin 10.1 g/dL (12.0-16.0); Platelet Count 172 thou/uL (130-400)
[2017-12-12 05:55] LABS: Band 3 % (5-11); Eosinophils 3 % (0-10); Hemoglobin 9.9 g/dL (12.0-16.0); Lymphocytes 17 % (21-51); MDiff Complete? YES; Mean Corpuscular HGB CONC 32.9 g/dL (32.0-36.0); Mean Corpuscular Hemoglobin 27.1 pg (27.0-31.0); Mean Corpuscular Volume 82.3 fL (78.0-98.0); Mean Platelet Volume 6.6 fL (7.4-10.4); Monocytes 5 % (0-10); Neutrophil 72 % (42-75); Platelet Count 174 thou/uL (130-400); RBC Distribution Width 14.1 % (11.5-14.5); Red Blood Cell (RBC) Count 3.65 mill/uL (4.20-5.40); White Blood Cell (WBC) Count 11.9 thou/uL (4.8-10.8)
[2017-12-12] MEDS: Digoxin 0.25 MG TAB PO SCH (08:18)
[2017-12-12] MEDS: Apixaban 5 MG TAB PO SCH (08:18)
[2017-12-12] MEDS: Insulin Glargine 30 UNITS in Pre-Filled Syringe SC SCH (08:18)
[2017-12-12] MEDS: Potassium Chloride 10 MEQ TAB PO SCH (08:19)
[2017-12-12] MEDS: Aspirin 81 mg Enteric Coated Tablet PO SCH (08:19)
--- NOTE | 2017-12-12 10:26 | PQF ---
CLINICAL DOCUMENTATION IMPROVEMENT CLARIFICATION FORM: ICD-10 Updated PLEASE DO AN ADDENDUM TO THE PROGRESS NOTE WITH ANY DOCUMENTATION UPDATES OR ADDITIONS AND CARRY THROUGH TO DC SUMMARY. THANK YOU. DATE: 12/12/17 ATTN: DR. WILHELM Please exercise your independent, professional judgment in responding to the clarification form. Clinical indicators are provided on the bottom of this form for your review Please check appropriate box(s): AMI TYPE: [ ] NSTEMI [ ] NSTEMI TYPE 2 [ x ] DEMAND ISCHEMIA [ ] Other diagnosis [ ] Unable to determine In addition, please specify: Present on Admission (POA): [ x ] Yes [ ] No [ ] Unable to determine CLINICAL INDICATORS - SIGNS / SYMPTOMS / LABS NOTE 12/10: "ACUTE SUSPECTED NSTEMI" H&P 12/10: "POSITIVE TROPONIN, POSSIBLE NON ST-ELEVATION MYOCARDIAL INFARCTION TYPE 2" PROGRESS NOTE 12/11: "DEMAND ISCHEMIA OF MYOCARDIUM" CONSULTATION NOTE 12/11: "ELEVATED TROPONIN, PROBABLY SECONDARY TO DEMAND ISCHEMIA DUE TO POORLY CONTROLLED HYPERTENSION." TROPONINS 0.306 / 0.327 / 0.322 RISKS: HYPERTENSION ATRIAL FIB TREATMENT: NUCLEAR STRESS TEST CAROTID DOPPLER STUDIES CARDIOLOGY CONSULT (This form is maintained as a part of the permanent medical record) 2014 [employer]. All Rights Reserved LOVE [email or web address] Office: [phone] MICHAEL
[2017-12-12 11:35] VITALS: BP 167/72; TEMP 98.8
--- NOTE | 2017-12-12 16:15 | DIS ---
DATE OF ADMISSION: 12/09/2017 DATE OF DISCHARGE: 12/12/2017 DISCHARGE DIAGNOSES: 1. Status post near syncope, likely due to bradycardia, improved. 2. Bradycardia, iatrogenic, improved. 3. Status post closed head injury. 4. Demand ischemia of the myocardium. 5. Hypertension, improved. 6. Status post mechanical fall. 7. Diabetes mellitus type 2, insulin requiring. CONSULTATION: Dr. Cifuentes with Cardiology Service. PERTINENT LABORATORY AND X-RAY FINDINGS: Creatinine ranged between 0.85-1.0. Estimated GFR ranged b etween 53-64. LFTs within normal limits. Troponin I ranged between 0.306-0.327, albumin 3.6, TSH 0. 38, free T4 1.26. CBC showed a white blood cell count ranging between 9.8-13.0, hemoglobin ranged be tween 9.8-10.6. Digoxin level 1.05. Blood cultures x2 dated 12/11/2017 showed no growth to date. U rine culture dated 12/11/2017 showed no growth at 24 hours. Stool Hemoccult 12/11/[address] of the brain without contrast dated 12/09/2017 showed no acute intracranial process. CT of the c ervical spine showed degenerative changes without acute process. CT of the facial bones dated 2017 showed no acute fracture or dislocation. Portable chest x-ray dated 12/09/2017 showed no acute cardiopulmonary process. Carotid Doppler study dated 12/10/2017 showed no hemodynamically significan t stenosis. Cardiolite stress test dated 12/11/2017 showed mild septal wall and apex scarring withou t reversible ischemia. Calculated ejection fraction of 67%. HOSPITAL COURSE: The patient was initially admitted status post near syncopal event/mechanical fall sustaining a right periorbital closed head injury. The patient underwent general syncopal workup inc luding carotid Doppler study showing no evidence of focal stenosis or hemodynamic compromise. Teleme try monitoring did show bradycardia with suspicion as underlying etiology for patient's presentation. The patient was discontinued off all AV genie blocking agents and monitored for clinical response. The patient was noted with elevated troponin I and initial concern for potential non-ST elevation my ocardial infarction. The patient was evaluated by the Cardiology Service who diagnosed the patient w ith demand ischemia of the myocardium without myocardial infarction. The patient underwent cardiac s tress testing showing no reversible ischemia, as stated previously. The patient was titrated on her antihypertensive regimen with more optimal control and likely will need additional titration on an on going basis after discharge. The patient was initiated on low dose diuretic therapy due to diastolic dysfunction; however, ejection fraction was preserved as stated previously in the 60% range. Overal l, patient did remain clinically stable with current telemetry monitoring showing sinus mechanism wit h heart rates in the 70s. The patient ambulating without difficulty, tolerating regular oral intake and voiding appropriately. I have examined the patient at the time of discharge and discussed follow up instructions at which point patient verbalizes understanding and agreement. The patient overall c linically stable and ready for discharge on 12/12/2017. DISCHARGE MEDICATIONS: 1. Amlodipine 5 mg one tab p.o. daily. 2. Eliquis 5 mg 1 tab p.o. b.i.d. 3. Lipitor 80 mg p.o. at bedtime. 4. Keflex 500 mg p.o. at bedtime. 5. Digoxin 250 mcg p.o. daily. 6. Faith 180 mg p.o. at bedtime. 7. Lasix 20 mg p.o. b.i.d. 8. Humalog sliding scale b.i.d. with meals. 9. Smilax 7.5/325 mg 1-2 tabs p.o. q.6 hours p.r.n. pain. 10. Levemir 30 units subcutaneously b.i.d. 11. Synthroid 175 mcg p.o. daily. 12. Lisinopril 20 mg p.o. at bedtime. 13. Metformin 500 mg 2 tabs p.o. b.i.d. 14. Singulair 10 mg p.o. at bedtime. 15. Klor-Con 10 mEq p.o. q.a.m. 16. Zoloft 100 mg p.o. at bedtime. FOLLOWUP: Patient will follow up with Dr. Leroy Harper within 7 days of discharge. The patient may follow up with Dr. Cifuentes and to call his office for appointment time and date. CONDITION ON DISCHARGE: Stable. ACTIVITY: Ad vasyl. DIET: ADA and heart healthy. CODE STATUS: FULL. DISPOSITION: Home 12/12/2017. Total time preparing and coordinating discharge is 36 minutes.
--- NOTE | 2017-12-14 23:00 | EKG ---
Test Reason : STAT Blood Pressure : / mmHG Vent. Rate : 065 BPM Atrial Rate : 065 BPM P-R Int : 222 ms QRS Dur : 110 ms QT Int : 416 ms P-R-T Axes : 073 -51 099 degrees QTc Int : 432 ms Sinus rhythm with 1st degree A-V block with Premature atrial complexes Left anterior fascicular block Septal infarct , age undetermined Abnormal ECG When compared with ECG of 14-OCT-2014 09:13, Sinus rhythm has replaced Atrial fibrillation Septal infarct is now Present T wave inversion less evident in Lateral leads Confirmed by Gilmar HUBBARD ([id number]) on 12/14/2017 11:00:17 PM Referred By: ROSALES Confirmed By:Gilmar HUBBARD
== END 2017-12-12 14:19 | disposition home or self-care (01) | DRG 309 ==
LOC: ERS 19:34 → 2NO 21:28
PROVIDERS: ADMIT Hospitalist; ATTEND Hospitalist
DX: R00.1 Bradycardia, unspecified (principal); I50.30 Unspecified diastolic (congestive) heart failure; I24.8 Other forms of acute ischemic heart disease; E03.9 Hypothyroidism, unspecified; E11.9 Type 2 diabetes mellitus without complications; I10 Essential (primary) hypertension; R55 Syncope and collapse; I25.10 Atherosclerotic heart disease of native coronary artery without angina pectoris; E78.5 Hyperlipidemia, unspecified; W19.XXXA Unspecified fall, initial encounter; S09.90XA Unspecified injury of head, initial encounter; I48.0 Paroxysmal atrial fibrillation; E78.00 Pure hypercholesterolemia, unspecified; Z90.49 Acquired absence of other specified parts of digestive tract; Z87.891 Personal history of nicotine dependence; Z85.3 Personal history of malignant neoplasm of breast; T44.8X5A Adverse effect of centrally-acting and adrenergic-neuron-blocking agents, initial encounter; Z96.653 Presence of artificial knee joint, bilateral; Z79.4 Long term (current) use of insulin; Z90.12 Acquired absence of left breast and nipple
CPT/HCPCS: 36415; 36416; 70450; 70486; 71045; 72125; 78452; 80048; 80053; 80162; 81003; 81015; 82274; 82553; 84439; 84443; 84484; 85007; 85014; 85018; 85025; 85027; 85049; 87040; 87086; 93005; 93010; 93017; 93880; 96374; A4216; A9500; J0360; J1815; J1940; J2785

== ENCOUNTER 2018-08-24 15:02 | Emergency (ER) | payer MEDICARE, BC, OTHER ==
[2018-08-24 16:28] LABS: ALT (SGPT) 23 U/L (8-55); AST (SGOT) 27 U/L (5-34); Albumin 3.8 g/dL (3.4-4.8); Alkaline Phosphatase 75 U/L (40-150); Anion Gap 16 mmol/L (10-20); BUN (Urea Nitrogen) 26 mg/dL (9.8-20.1); Bilirubin, Total 0.6 mg/dL (0.2-1.2); CK (CPK) 42 U/L (29-168); Calc. Creatinine Clearance 0 mL/min (70-130); Calcium 8.9 mg/dL (7.8-10.44); Carbon Dioxide 22 mmol/L (23-31); Chloride 106 mmol/L (98-107); Estimated GFR-MDRD 40; Globulin 3.5 g/dL (2.4-3.5); Glucose 158 mg/dL (83-110); Lipase 22 U/L (8-78); Potassium 5.1 mmol/L (3.5-5.1); Protein, Total 7.3 g/dL (6.0-8.3); Sodium 139 mmol/L (136-145)
[2018-08-24 16:29] LABS: Bilirubin Negative (Negative); Blood, Urine Trace (Negative); Clarity Cloudy (Clear); Glucose, Urine (Dipstick) Negative (Negative); Leukocyte Negative (Negative); Nitrite Negative (Negative); Protein, Urine (Dipstick) > or equal to 300 mg/dL (Neg-Trace); Urobilinogen 0.2 mg/dL (0.2-1.0)
[2018-08-24 16:34] LABS: Hemoglobin 9.9 g/dL (12.0-16.0); Mean Corpuscular HGB CONC 29.8 g/dL (32.0-36.0); Mean Corpuscular Hemoglobin 24.2 pg (27.0-31.0); Mean Corpuscular Volume 81.4 fL (78.0-98.0); Mean Platelet Volume 6.4 fL (7.4-10.4); Platelet Count 147 thou/uL (130-400); Red Blood Cell (RBC) Count 4.08 mill/uL (4.20-5.40); White Blood Cell (WBC) Count 12.3 thou/uL (4.8-10.8)
[2018-08-24 16:37] LABS: Bacteria/HPF Rare-Few HPF (None Seen); Crystals/HPF 2+ AMORPH URATES HPF (Negative)
[2018-08-24 16:55] LABS: Anisocytosis SLIGHT = 6-15 cells (100X) (0-5/hpf); Band 7 % (5-11); Elliptocytes SLIGHT = 2-5 cells (100X) (0-1/hpf); Hypochromia SLIGHT = 6-15 cells (100X) (0-5/hpf); Lymphocytes 5 % (21-51); Microcytosis SLIGHT = 6-15 cells (100X) (0-5/hpf); Monocytes 4 % (0-10); Neutrophil 84 % (42-75); Platelet Morphology Comment Appears Adequate; Toxic Granulation SLIGHT; Vacuoles SLIGHT
[2018-08-24 16:57] LABS: MDiff Complete? YES
[2018-08-24] MEDS ORDERED: Ondansetron PF 4 MG/2 ML Vial ONE (17:19)
== END 2018-08-24 18:33 | disposition home or self-care (01) ==
LOC: SCSER 15:02
DX: E86.0 Dehydration (principal); R11.2 Nausea with vomiting, unspecified; R19.7 Diarrhea, unspecified; E03.9 Hypothyroidism, unspecified; I48.91 Unspecified atrial fibrillation; E11.9 Type 2 diabetes mellitus without complications; I10 Essential (primary) hypertension; F32.9 Major depressive disorder, single episode, unspecified; Z79.899 Other long term (current) drug therapy; Z79.4 Long term (current) use of insulin; Z79.84 Long term (current) use of oral hypoglycemic drugs
CPT/HCPCS: 51701; 80053; 81003; 81015; 82550; 83605; 83690; 84484; 85025; 93005; 96361; 96374; A4353; J2405

== ENCOUNTER 2018-09-02 14:40 | Outpatient (CLI) | payer MEDICARE, BC, OTHER ==
--- NOTE | 2018-09-02 16:00 | CT ---
ABDOMEN AND PELVIS WITHOUT AND WITH CONTRAST: HISTORY: Unexplained weight loss and tenderness in the epigastric region. TECHNIQUE: Multiple contiguous axial images were obtained in a CT of the abdomen and pelvis without and with IV contrast. Oral contrast was administered. Coronal reformats were performed. FINDINGS: The patient is status post cholecystectomy. There are hypodensities in the kidneys noted up to 2.9 c m in size which represent cysts. A nonobstructing 5 mm calcification is seen in each kidney. The ad renal glands, spleen, and pancreas are unremarkable. No free air, free fluid, or stranding changes are seen in the abdomen or pelvis. The urinary bladder is moderately distended. There is a hypodensity in the pelvis. Scattered diverticula are seen in t he colon. The small bowel is normal in caliber. There is a hypodensity in the left aspect of the pelvis containing a calcification. This may represe nt a bladder diverticulum containing a calcification. Alternatively, this could represent a left ova mariana cyst containing a calcification. No abdominal or pelvic lymphadenopathy are seen. Atherosclero tic calcifications are seen in the aorta. Degenerative changes are seen in the spine and sacroiliac joints. The abdominal wall soft tissues an d visualized inferior thorax are unremarkable. IMPRESSION: 1. No evidence of acute intraabdominal/pelvic abnormality. 2. Bilateral renal cysts. 3. Nonobstructing bilateral renal calcifications. 4. Diverticulosis. POS: TPC
== END 2018-09-02 14:41 | disposition home or self-care (01) ==
LOC: BICCT 14:40
PROVIDERS: ATTEND Internal Medicine
DX: R19.00 Intra-abdominal and pelvic swelling, mass and lump, unspecified site (principal); N28.1 Cyst of kidney, acquired; N28.89 Other specified disorders of kidney and ureter; K57.30 Diverticulosis of large intestine without perforation or abscess without bleeding
CPT/HCPCS: 74178

== ENCOUNTER 2018-09-06 14:51 | Emergency (ER) | payer MEDICARE, BC, OTHER ==
--- NOTE | 2018-09-06 15:25 | RAD ---
Left hip: 2 views. History is fall with injury. Mild degenerative change at the left hip. No acute fracture identified. IMPRESSION: No evidence of fracture
--- NOTE | 2018-09-06 17:03 | CT ---
CT HEAD WITHOUT CONTRAST: Technique: Multiple axial tomograms were obtained through the head without IV enhancement. Indications: Fall with injury. Comparison: 12-09-17 FINDINGS: Ventricles have normal size and position. Mild to moderate chronic ischemic white matter changes are stable. No evidence of hemorrhage or contusion. Paranasal sinuses and mastoids are clear. IMPRESSION: No acute abnormality. POS: OFF
== END 2018-09-06 15:48 | disposition home or self-care (01) ==
LOC: SCSER 14:51
DX: S70.02XA Contusion of left hip, initial encounter (principal); S09.90XA Unspecified injury of head, initial encounter; E11.9 Type 2 diabetes mellitus without complications; I10 Essential (primary) hypertension; M19.90 Unspecified osteoarthritis, unspecified site; F32.9 Major depressive disorder, single episode, unspecified; I48.91 Unspecified atrial fibrillation; Z79.4 Long term (current) use of insulin; Z79.899 Other long term (current) drug therapy; W19.XXXA Unspecified fall, initial encounter
CPT/HCPCS: 70450

== ENCOUNTER 2018-09-16 12:00 | Outpatient (CLI) | payer MEDICARE, BC, OTHER ==
--- NOTE | 2018-09-16 12:44 | RAD ---
CHEST 2 VIEWS: HISTORY: Abdominal mass, losing weight, injury from a fall 2 weeks ago. COMPARISON: 09/11/2017. FINDINGS: Right ICD. Postop anterior cervical fusion changes of the lower cervical spine. Heart size is withi n normal limits. No confluent pneumonia, overt edema, or pleural effusion. IMPRESSION: Minimal stable chronic lung changes. No acute intrathoracic disease. Right implantable cardioverter defibrillator. Arthrosclerosis of the aorta. POS: TPC
== END 2018-09-16 12:01 | disposition home or self-care (01) ==
LOC: BICRAD 12:00
PROVIDERS: ATTEND Internal Medicine
DX: R19.00 Intra-abdominal and pelvic swelling, mass and lump, unspecified site (principal); R63.4 Abnormal weight loss; I70.0 Atherosclerosis of aorta; Z95.810 Presence of automatic (implantable) cardiac defibrillator
CPT/HCPCS: 71046

== ENCOUNTER 2019-06-16 08:14 | Emergency (ER) | payer MEDICARE, BC ==
--- NOTE | 2019-06-16 09:04 | CT ---
CT BRAIN NONCONTRAST: DATE: 06/16/2019 HISTORY: 84-year-old female on anticoagulation therapy status post acute head trauma from fall. FINDINGS: There is no evidence of acute intra-axial or extra-axial hemorrhage. There is no midline shift or any other mass effect. There is no extra-axial fluid collection. There is no evidence of obstructive hydrocephalus. Calvarium is intact. There is diffuse brain parenchymal volume loss. There are low att enuation areas in the white matter. These are nonspecific, but in a patient of this age, they are probably chronic ischemic white matter changes due to microvascular atherosclerosis. IMPRESSION: 1) No acute intracranial findings. 2) involutional changes and chronic ischemic white matter changes.
== END 2019-06-16 10:40 | disposition home or self-care (01) ==
LOC: ERS 08:14
DX: S09.90XA Unspecified injury of head, initial encounter (principal); S51.012A Laceration without foreign body of left elbow, initial encounter; S00.03XA Contusion of scalp, initial encounter; I48.91 Unspecified atrial fibrillation; E03.9 Hypothyroidism, unspecified; E11.9 Type 2 diabetes mellitus without complications; I10 Essential (primary) hypertension; M19.90 Unspecified osteoarthritis, unspecified site; F32.9 Major depressive disorder, single episode, unspecified; Z87.891 Personal history of nicotine dependence; Z79.4 Long term (current) use of insulin; Z79.899 Other long term (current) drug therapy; Z79.02 Long term (current) use of antithrombotics/antiplatelets; W18.11XA Fall from or off toilet without subsequent striking against object, initial encounter
CPT/HCPCS: 70450

== ENCOUNTER 2019-10-09 08:08 | Emergency (ER) | payer MEDICARE, BC, OTHER ==
[2019-10-09 08:52] LABS: #Basophils 0.1 thou/uL (0.0-0.2); #Eosinphils 0.1 thou/uL (0.0-0.7); #Lymphocytes 2.3 thou/uL (1.20-3.40); #Monocytes 0.9 thou/uL (0.11-0.59); #Neutrophils 8.5 thou/uL (1.40-6.50); %Basophils 0.5 % (0.0-1.0); %Eosinophils 0.4 % (0.0-10.0); %Lymphocytes 19.2 % (21.0-51.0); %Monocytes 7.6 % (0.0-10.0); %Neutrophils 72.3 % (42.0-75.0); Hemoglobin 9.9 g/dL (12.0-16.0); Mean Corpuscular HGB CONC 31.3 g/dL (32.0-36.0); Mean Corpuscular Hemoglobin 26.6 pg (27.0-31.0); Mean Corpuscular Volume 84.9 fL (78.0-98.0); Mean Platelet Volume 6.9 fL (7.4-10.4); Platelet Count 214 thou/uL (130-400); RBC Distribution Width 14.4 % (11.5-14.5); Red Blood Cell (RBC) Count 3.72 mill/uL (4.20-5.40); White Blood Cell (WBC) Count 11.7 thou/uL (4.8-10.8)
[2019-10-09 09:12] LABS: ALT (SGPT) 19 U/L (8-55); AST (SGOT) 34 U/L (5-34); Alkaline Phosphatase 62 U/L (40-110); Anion Gap 14 mmol/L (10-20); BUN (Urea Nitrogen) 37 mg/dL (9.8-20.1); Bilirubin, Total 0.5 mg/dL (0.2-1.2); Calc. Creatinine Clearance 0 mL/min (70-130); Calcium 8.9 mg/dL (7.8-10.44); Carbon Dioxide 25 mmol/L (23-31); Chloride 102 mmol/L (98-107); Estimated GFR-MDRD 31; Globulin 3.9 g/dL (2.4-3.5); Potassium 4.9 mmol/L (3.5-5.1); Protein, Total 7.9 g/dL (6.0-8.3); Sodium 136 mmol/L (136-145)
[2019-10-09 09:16] LABS: Glucose 44 mg/dL (83-110)
--- NOTE | 2019-10-09 09:28 | RAD ---
RIGHT ELBOW FOUR VIEWS: HISTORY: Fall. Right elbow pain. FINDINGS: There is a faint lucency in the head of the radius noted on a single image. The possibility of this r epresenting a fracture cannot be excluded. There are degenerative changes. No dislocation is seen. POS: OFF
--- NOTE | 2019-10-09 09:30 | CT ---
CT BRAIN WITHOUT CONTRAST: HISTORY: Dementia. Fall. Head injury. COMPARISON: 06/16/2019 FINDINGS: Changes of chronic small vessel ischemic disease are again seen. There is a scalp contusion in the fr ontal regions, predominantly on the right. No evidence of acute infarct, hemorrhage, midline shift or abnormal extraaxial fluid collection is se en. The ventricular size is appropriate and the basilar cisterns are patent. The bony calvarium is in tact. The visualized paranasal sinuses and mastoid air cells are well aerated. There is a 2 cm mass in the right parotid gland. IMPRESSION: 1. No CT evidence of acute intracranial process. 2. A 2 cm right parotid mass. ENT consultation is recommended. POS: OFF
[2019-10-09 09:32] LABS: Bilirubin Negative (Negative); Blood, Urine Negative (Negative); Clarity Clear (Clear); Glucose, Urine (Dipstick) Normal (Negative); Leukocyte 500 Leu/uL (Negative); Nitrite Negative (Negative); Protein, Urine (Dipstick) 100 mg/dL (Neg-Trace); RBC/HPF 0-3 HPF (0-3); Urobilinogen Normal mg/dL (Less than 2); WBC/HPF Greater than 50 HPF (0-3)
[2019-10-09 09:41] LABS: Bacteria/HPF 1+ HPF (None Seen)
== END 2019-10-09 10:15 | disposition home or self-care (01) ==
LOC: ERS 08:08
DX: S51.011A Laceration without foreign body of right elbow, initial encounter (principal); S00.03XA Contusion of scalp, initial encounter; E11.649 Type 2 diabetes mellitus with hypoglycemia without coma; N39.0 Urinary tract infection, site not specified; I10 Essential (primary) hypertension; I48.91 Unspecified atrial fibrillation; M19.90 Unspecified osteoarthritis, unspecified site; E03.9 Hypothyroidism, unspecified; F32.9 Major depressive disorder, single episode, unspecified; Z87.891 Personal history of nicotine dependence; Z79.82 Long term (current) use of aspirin; Z79.891 Long term (current) use of opiate analgesic; Z79.899 Other long term (current) drug therapy; Z79.4 Long term (current) use of insulin; W18.11XA Fall from or off toilet without subsequent striking against object, initial encounter
CPT/HCPCS: 36415; 36416; 70450; 80053; 81003; 81015; 85025; 87086; 93005

== ENCOUNTER 2019-10-09 19:23 | Observation (INO) | payer MEDICARE, BC, OTHER ==
[2019-10-09 20:06] LABS: #Basophils 0.1 thou/uL (0.0-0.2); #Eosinphils 0.1 thou/uL (0.0-0.7); #Lymphocytes 2.1 thou/uL (1.20-3.40); #Monocytes 1.1 thou/uL (0.11-0.59); #Neutrophils 9.3 thou/uL (1.40-6.50); %Basophils 0.5 % (0.0-1.0); %Lymphocytes 16.7 % (21.0-51.0); %Monocytes 8.7 % (0.0-10.0); %Neutrophils 73.1 % (42.0-75.0); Hemoglobin 8.7 g/dL (12.0-16.0); Mean Corpuscular HGB CONC 30.9 g/dL (32.0-36.0); Mean Corpuscular Hemoglobin 26.4 pg (27.0-31.0); Mean Corpuscular Volume 85.3 fL (78.0-98.0); Mean Platelet Volume 6.7 fL (7.4-10.4); Platelet Count 212 thou/uL (130-400); RBC Distribution Width 14.4 % (11.5-14.5); White Blood Cell (WBC) Count 12.7 thou/uL (4.8-10.8)
[2019-10-09 20:12] LABS: INR-International Normal Ratio 1.1; Prothrombin Time 13.9 sec (12.0-14.7)
--- NOTE | 2019-10-09 20:25 | CT ---
CT OF THE ABDOMEN AND PELVIS WITHOUT IV CONTRAST INDICATION: Fall with left flank pain and hematoma COMPARISON: CT the abdomen and pelvis with and without contrast dated September 02, 2018 FINDINGS: The lack of IV contrast limits evaluation of the solid organs of the abdomen and pelvis. ABDOMEN: Lung bases: Clear Liver: No focal lesion. Gallbladder: Surgically absent Pancreas: Normal. Adrenal glands: Normal. Spleen: Normal. Kidneys and ureters: Stable renal cysts. No hydronephrosis. Vasculature: There are severe vascular calcifications seen involving the visualized vasculature. Lymph nodes:No lymphadenopathy. Free fluid in abdomen:No free fluid is evident. PELVIS: Small and large bowel: Normal Appendix:Normal Bladder: Moderately distended Rectal and perirectal soft tissues:Normal. Reproductive structures: Stable 2.4 cm left adnexal cyst Free fluid in pelvis: No free fluid is evident. Lymphadenopathy pelvis: No lymphadenopathy is evident. Osseous structures: There are mildly displaced left posterior 12th and 11th rib fractures. No additio nal fracture is evident. There is scattered degenerative and osteoarthritic changes. Soft tissues:There is a 9 x 8.2 cm subcutaneous hematoma overlying the posterior left 12th and 11th r ibs. There is surrounding edema within the soft tissues. IMPRESSION: 1. 9 cm subcutaneous hematoma overlying the left posterior flank. Mildly displaced left posterior 12t h and 11th rib fractures. 2. Moderate distention of the bladder. 3. Other chronic findings as above
[2019-10-09 20:48] LABS: CKMB 2.8 ng/mL (0-6.6)
[2019-10-09] MEDS ORDERED: Ondansetron PF 4 MG/2 ML Vial IVP PRN (21:56)
[2019-10-09] MEDS ORDERED: traMADol HCl 50 MG TAB PO PRN ×2 (21:56)
[2019-10-09] MEDS ORDERED: Cyclobenzaprine 10 MG TAB PO PRN (21:56)
[2019-10-09] MEDS ORDERED: Ondansetron ODT 4 MG TAB PO PRN (21:56)
[2019-10-09] MEDS ORDERED: HumaLOG 300 UNITS/3 ML VIAL SC PRN (21:56)
[2019-10-09] MEDS ORDERED: Dextrose 50% Abboject 50 ML SYRINGE SLOW IVP PRN (21:56)
[2019-10-09] MEDS ORDERED: Dextrose 5% in Water 1,000 ML IV PRN (21:56)
[2019-10-09] MEDS ORDERED: Acetaminophen/Codeine 30-300mg Tablet PO PRN (21:56)
[2019-10-09] MEDS ORDERED: Sodium Chloride 0.9% 1,000 ML IV SCH (21:56)
[2019-10-09] MEDS ORDERED: HYDROcodone/Acetaminophen 7.5/325 mg Tablet PO PRN (22:46)
--- NOTE | 2019-10-09 23:44 | HP ---
REQUESTING PHYSICIAN: Jhonatan Barrios MD ATTENDING SURGEON: Serafin Day MD HISTORY OF PRESENT ILLNESS: The patient is an 84-year-old woman who has had multiple falls over the last several weeks to include 2 today, 1 earlier today, was due to hypoglycemia as by report of the family, they are making adjustments to her insulin, and it does not sound like they are consulting the physician. This evening, she reportedly had another fall hitting her left flank. She was brought back into the emergency department where she underwent evaluation and examination, and was noted to have an expanding hematoma in her left flank. Her labs compared to earlier showed a 1 g drop of hemoglobin, at which time, we were asked to evaluate her for admission for observation. The ER physician did not feel comfortable getting her into rehab. This most recent fall, the patient denied any loss of consciousness or hitting her head. Earlier today, she underwent CT evaluation of her head, which was unremarkable. The patient denies blood thinner use with the exception of a baby aspirin daily. ALLERGIES: MAGNOLIA INHIBITORS. CURRENT MEDICATIONS: 1. Metformin. 2. Insulin. 3. Rosuvastatin. 4. Lasix. 5. Levothyroxine. 6. Norvasc. 7. Digoxin. 8. [place]. 9. Sertraline. 10. Multivitamins. 11. Aspirin. 12. Zetia. 13. Tizanidine. 14. Medrol Dosepak. 15. Lantus. 16. Cipro. 17. . PAST MEDICAL HISTORY: Breast cancer, atrial fibrillation, hypothyroidism, diabetes, hypertension, multijoint and spine arthritis, and depression. PAST SURGICAL HISTORY: Cardiac ablation, pacemaker placement, bilateral knee replacements, bilateral eye lens replacements, ACDF, left mastectomy, appendectomy, carpal tunnel. SOCIAL HISTORY: The patient lives with family. She uses a walker to ambulate. She rarely drinks alcohol. No drug use history and quit smoking tobacco greater than 20 years ago. REVIEW OF SYSTEMS: A 10-point review of systems is negative as otherwise stated. PHYSICAL EXAMINATION: VITAL SIGNS: Blood pressure 153/72, heart rate 63, respirations 18, oxygen saturation 96% on room air, and temperature is 98.8. GENERAL: The patient is resting comfortably in bed. She is awake, alert, and oriented x2, which the daughter states this is her baseline. Her [place] Coma Scale is 14, -1 for confusion. HEENT: Head is normocephalic with a contusion noted to the right side of her forehead, which is from her earlier fall today. Eyes, extraocular movements intact. PERRLA bilaterally. Ears are atraumatic without discharge. Nose is atraumatic without discharge. Oropharynx is clear. NECK: Nontender with trachea is midline. No JVD. CHEST: Clear to auscultation with moderate inspiratory and expiratory effort. HEART: Regular rate and rhythm. ABDOMEN: Soft, flat, nontender with active bowel sounds. PELVIS: Stable. EXTREMITIES: Neurovascularly intact x4. BACK: Left flank has approximately 15-cm circular contusion with central ecchymosis noted. LABORATORY FINDINGS: White blood cell count 12.7, hemoglobin 8.7, hematocrit 28.1, platelets 212. Chemistries are pending. INR 1.1. RADIOGRAPHIC REPORTS: CT of the abdomen and pelvis shows a 9-cm subcutaneous hematoma overlying the left posterior flank. There also noted to be mildly displaced left posterior 12th and 11th ribs. ASSESSMENT: 1. Status post ground-level fall. 2. Left flank hematoma. 3. Acute on chronic anemia, most recent due to acute blood loss. 4. History of hypertension, hypothyroidism, pacemaker placement, breast cancer. PLAN: Plan will be to admit the patient to the surgical floor for observation. We will repeat her labs in the morning, sooner as needed. We will do gentle fluid hydration as her previous chemistry showed a mildly elevated creatinine, which appears to be chronic in nature. We will do pain control, pulmonary toilet, gastritis and mechanical VTE prophylaxis. Tomorrow, we will have Physical and Occupational Therapy evaluate her and likely make recommendations for inpatient rehab for her multiple falls and this most recent injury. The evaluation, examination, and laboratory, and radiographic findings were discussed with Dr. Day prior to this dictation. Job ID: [id number]
[2019-10-09 23:50] VITALS: BMI 24.3
[2019-10-09] MEDS: Acetaminophen 325 MG TAB PO SCH (23:57)
[2019-10-10 05:14] LABS: #Eosinphils 0.1 thou/uL (0.0-0.7); #Lymphocytes 2.2 thou/uL (1.20-3.40); #Monocytes 0.6 thou/uL (0.11-0.59); #Neutrophils 5.2 thou/uL (1.40-6.50); %Basophils 0.4 % (0.0-1.0); %Eosinophils 1.1 % (0.0-10.0); %Lymphocytes 26.6 % (21.0-51.0); %Monocytes 7.8 % (0.0-10.0); %Neutrophils 64.1 % (42.0-75.0); Hemoglobin 7.2 g/dL (12.0-16.0); Mean Corpuscular HGB CONC 30.7 g/dL (32.0-36.0); Mean Corpuscular Hemoglobin 26.3 pg (27.0-31.0); Mean Corpuscular Volume 85.6 fL (78.0-98.0); Mean Platelet Volume 7.1 fL (7.4-10.4); Platelet Count 152 thou/uL (130-400); RBC Distribution Width 14.4 % (11.5-14.5); Red Blood Cell (RBC) Count 2.72 mill/uL (4.20-5.40); White Blood Cell (WBC) Count 8.1 thou/uL (4.8-10.8)
[2019-10-10 05:35] LABS: Anion Gap 12 mmol/L (10-20); BUN (Urea Nitrogen) 35 mg/dL (9.8-20.1); Calc. Creatinine Clearance 33 mL/min (70-130); Calcium 7.9 mg/dL (7.8-10.44); Carbon Dioxide 26 mmol/L (23-31); Chloride 104 mmol/L (98-107); Estimated GFR-MDRD 34; Glucose 218 mg/dL (83-110); Potassium 5.2 mmol/L (3.5-5.1); Sodium 137 mmol/L (136-145)
[2019-10-10] MEDS: Acetaminophen 325 MG TAB PO SCH ×4 (05:39→23:59)
[2019-10-10] MEDS: HumaLOG 300 UNITS/3 ML VIAL SC PRN ×3 (05:49→18:31)
[2019-10-10] MEDS: Famotidine 20 MG TAB PO SCH (08:22)
--- NOTE | 2019-10-10 08:37 | PRG ---
DATE OF SERVICE: 10/10/2019 SUBJECTIVE: Ms. Kirkland has no complaints. No pain. Denies dizziness, nausea, or vomiting. No abdominal pain. She was hemodynamically stable overnight. PHYSICAL EXAMINATION: VITAL SIGNS: Blood pressure is 155/62, pulse 71, respirations 16. She is afebrile, O2 saturation is 99% on room air. CHEST: Clear. HEART: Regular rate. ABDOMEN: Soft, nontender. EXTREMITIES: Examination of her left flank reveals stable appearing hematoma. No ischemia or edema to extremities. LABORATORY DATA: White blood cell count is 7.2. Creatinine is 1.46 which is down slightly from admission. ASSESSMENT: Fall trauma with hematoma, left flank, hemoglobin dropped a point or two from her chronic anemia level, but it has stabilized. She is hemodynamically stable. She is safe to be transferred to rehab. Job ID: [id number]
[2019-10-10] MEDS ORDERED: tiZANidine HCl 4 MG TAB PO PRN (16:41)
[2019-10-10] MEDS ORDERED: Furosemide 20 MG TAB PO SCH (16:45)
[2019-10-10] MEDS ORDERED: Digoxin 0.25 MG TAB PO SCH (21:00)
[2019-10-10] MEDS ORDERED: Rosuvastatin 20 MG TAB PO SCH (21:00)
[2019-10-10] MEDS ORDERED: Ciprofloxacin 500 MG TAB PO SCH (21:00)
[2019-10-10] MEDS ORDERED: Aspirin 81 mg Enteric Coated Tablet PO SCH (21:00)
[2019-10-11] MEDS: Acetaminophen 325 MG TAB PO SCH ×2 (05:27→12:53)
[2019-10-11] MEDS ORDERED: Levothyroxine Sodium 125 MCG TAB PO SCH (06:00)
[2019-10-11] MEDS: HumaLOG 300 UNITS/3 ML VIAL SC PRN ×2 (06:41→12:53)
[2019-10-11] MEDS: Famotidine 20 MG TAB PO SCH (08:40)
[2019-10-11] MEDS ORDERED: Amlodipine 5 MG TAB PO SCH (09:00)
[2019-10-11] MEDS ORDERED: NEURIVA PO SCH (09:00)
[2019-10-11] MEDS ORDERED: Ezetimibe 10 MG TAB PO SCH (09:00)
[2019-10-11 10:05] LABS: #Eosinphils 0.1 thou/uL (0.0-0.7); #Lymphocytes 1.3 thou/uL (1.20-3.40); #Monocytes 0.5 thou/uL (0.11-0.59); #Neutrophils 6.1 thou/uL (1.40-6.50); %Basophils 0.4 % (0.0-1.0); %Eosinophils 1.4 % (0.0-10.0); %Lymphocytes 15.9 % (21.0-51.0); %Monocytes 6.8 % (0.0-10.0); %Neutrophils 75.5 % (42.0-75.0); Hemoglobin 8.8 g/dL (12.0-16.0); Mean Corpuscular HGB CONC 30.8 g/dL (32.0-36.0); Mean Corpuscular Hemoglobin 26.2 pg (27.0-31.0); Mean Corpuscular Volume 85.1 fL (78.0-98.0); Mean Platelet Volume 7.2 fL (7.4-10.4); Platelet Count 199 thou/uL (130-400); RBC Distribution Width 14.7 % (11.5-14.5); Red Blood Cell (RBC) Count 3.35 mill/uL (4.20-5.40); White Blood Cell (WBC) Count 8.1 thou/uL (4.8-10.8)
[2019-10-11 10:27] LABS: Anion Gap 15 mmol/L (10-20); BUN (Urea Nitrogen) 27 mg/dL (9.8-20.1); Calc. Creatinine Clearance 31 mL/min (70-130); Calcium 8.6 mg/dL (7.8-10.44); Carbon Dioxide 22 mmol/L (23-31); Chloride 102 mmol/L (98-107); Estimated GFR-MDRD 32; Glucose 262 mg/dL (83-110); Magnesium 2.1 mg/dL (1.6-2.6); Phosphorus 3.3 mg/dL (2.3-4.7); Sodium 134 mmol/L (136-145)
[2019-10-11] MEDS ORDERED: traMADol HCl 50 MG TAB PO PRN ×2 (11:29)
[2019-10-11 11:48] VITALS: TEMP 97.9
[2019-10-11] MEDS: hydrALAZINE 20 MG/ML VIAL SLOW IVP PRN ×2 (13:38)
[2019-10-11 13:39] VITALS: BP 175/66
--- NOTE | 2019-10-16 12:54 | EKG ---
Test Reason : Blood Pressure : / mmHG Vent. Rate : 065 BPM Atrial Rate : 065 BPM P-R Int : 000 ms QRS Dur : 110 ms QT Int : 388 ms P-R-T Axes : 000 -37 080 degrees QTc Int : 403 ms Electronic atrial pacemaker Left axis deviation Incomplete right bundle branch block Minimal voltage criteria for LVH, may be normal variant Septal infarct , age undetermined Abnormal ECG Confirmed by SONY CARDENAS ([id number]), editor map ABDI YOUNG ([id number]) on 10/16/2019 12:54:02 PM Referred By: Confirmed By:SONY Ramos
== END 2019-10-11 14:15 | disposition home or self-care (01) ==
LOC: ERS 19:23 → SURG B 21:55
PROVIDERS: ADMIT Surgery; ATTEND Surgery
DX: S30.1XXA Contusion of abdominal wall, initial encounter (principal); S22.42XA Multiple fractures of ribs, left side, initial encounter for closed fracture; D53.9 Nutritional anemia, unspecified; E11.9 Type 2 diabetes mellitus without complications; I48.91 Unspecified atrial fibrillation; E03.9 Hypothyroidism, unspecified; I10 Essential (primary) hypertension; M19.90 Unspecified osteoarthritis, unspecified site; F32.9 Major depressive disorder, single episode, unspecified; Z87.891 Personal history of nicotine dependence; Z79.2 Long term (current) use of antibiotics; Z79.4 Long term (current) use of insulin; Z79.82 Long term (current) use of aspirin; Z79.899 Other long term (current) drug therapy; Z88.2 Allergy status to sulfonamides; Z88.8 Allergy status to other drugs, medicaments and biological substances; Z95.0 Presence of cardiac pacemaker; W19.XXXA Unspecified fall, initial encounter
CPT/HCPCS: 70450; 73080; 74176; 80048 ×2; 80053; 82553; 82962 ×3; 83735; 84100; 84484; 85025 ×4; 85610; 86850; 86900; 86901; 87086; 93005; 94760; 96361; 96374; 96376; 97116; 97139 ×3; 99284; 99285; G0378 ×4; 36415; 36416; 81003; 81015; J0360

== ENCOUNTER 2019-11-26 08:04 | Inpatient (IN) | payer MEDICARE, BC, OTHER ==
[2019-11-26 08:29] LABS: #Eosinphils 0.1 thou/uL (0.0-0.7); #Lymphocytes 0.9 thou/uL (1.20-3.40); #Neutrophils 11.5 thou/uL (1.40-6.50); %Basophils 0.3 % (0.0-1.0); %Eosinophils 0.9 % (0.0-10.0); %Lymphocytes 6.5 % (21.0-51.0); %Monocytes 7.6 % (0.0-10.0); %Neutrophils 84.8 % (42.0-75.0); Hemoglobin 8.3 g/dL (12.0-16.0); Mean Corpuscular HGB CONC 31.3 g/dL (32.0-36.0); Mean Corpuscular Hemoglobin 26.5 pg (27.0-31.0); Mean Corpuscular Volume 84.9 fL (78.0-98.0); Mean Platelet Volume 6.6 fL (7.4-10.4); Platelet Count 219 thou/uL (130-400); RBC Distribution Width 15.3 % (11.5-14.5); Red Blood Cell (RBC) Count 3.13 mill/uL (4.20-5.40); White Blood Cell (WBC) Count 13.6 thou/uL (4.8-10.8)
[2019-11-26 08:30] LABS: MDiff Complete? YES
[2019-11-26] MEDS ORDERED: Acetaminophen 500 MG TAB ONE (08:41)
[2019-11-26] MEDS ORDERED: Ondansetron PF 4 MG/2 ML Vial ONE (08:41)
[2019-11-26 08:45] LABS: ALT (SGPT) 19 U/L (8-55); AST (SGOT) 24 U/L (5-34); Albumin 3.4 g/dL (3.4-4.8); Alkaline Phosphatase 78 U/L (40-110); Anion Gap 14 mmol/L (10-20); BUN (Urea Nitrogen) 30 mg/dL (9.8-20.1); Bilirubin, Total 0.9 mg/dL (0.2-1.2); Calc. Creatinine Clearance 0 mL/min (70-130); Calcium 8.4 mg/dL (7.8-10.44); Carbon Dioxide 23 mmol/L (23-31); Chloride 102 mmol/L (98-107); Estimated GFR-MDRD 35; Globulin 3.8 g/dL (2.4-3.5); Glucose 175 mg/dL (83-110); Protein, Total 7.2 g/dL (6.0-8.3); Sodium 134 mmol/L (136-145)
[2019-11-26 08:55] LABS: CK (CPK) 33 U/L (29-168); Lipase 31 U/L (8-78)
[2019-11-26 09:07] LABS: CKMB 0.8 ng/mL (0-6.6)
--- NOTE | 2019-11-26 09:11 | RAD ---
XR Chest 1 View Portable History: Shortness of breath Comparison: Radiograph October 2018 Findings: Heart size is enlarged. Mild pulmonary edema. No pneumothorax. Left axillary surgical clips . Dual-lead pacer is similar. No acute osseous abnormality. Impression: Mild congestive heart failure.
--- NOTE | 2019-11-26 09:13 | RAD ---
XR Hip Rt 2-3 View History: Shortness of breath and fall with pain Comparison: None. Findings: The right obturator rings felt to be intact. No acute displaced fracture or malalignment. F emoral head and neck are intact. Moderate vascular calcifications. Extensive enthesopathic changes of both technetium. Likely old insufficiency fracture of the right sacrum. Impression: 1. No acute fracture of the right hip. 2. Likely old insufficiency fracture of the right sacrum.
[2019-11-26 09:17] LABS: Bacteria/HPF None Seen HPF (None Seen); Bilirubin Negative (Negative); Blood, Urine Negative (Negative); Clarity Turbid (Clear); Glucose, Urine (Dipstick) Normal (Negative); Ketone, Urine Negative (Negative); Leukocyte 500 Leu/uL (Negative); Nitrite Negative (Negative); Protein, Urine (Dipstick) 100 mg/dL (Neg-Trace); RBC/HPF 0-3 HPF (0-3); Specific Gravity, Urine 1.017 (1.002-1.036); Squamous Epithelial 0-3 HPF (0-3); Urobilinogen 3 mg/dL (Less than 2); WBC/HPF Greater than 50 HPF (0-3); pH, Urine 6.5 (5.0-9.0)
[2019-11-26] MEDS ORDERED: Vancomycin 1 GM/200 ML BAG ONE (09:28)
[2019-11-26] MEDS ORDERED: cefTRIAXone\\ROCEPHIN 2 GM VIAL ONE (09:28)
--- NOTE | 2019-11-26 09:52 | CT ---
CTA chest with contrast: Multiple axial tomograms obtained through the chest following a pulmonary angiogram protocol with mul tiplanar reconstruction and 3-D postprocessing. INDICATIONS: Dyspnea and chest pain. Assess for pulmonary embolus. COMPARISON: None FINDINGS: Pulmonary arteries show adequate opacification. No evidence of pulmonary embolus identified. Thoracic aorta shows atherosclerotic change. No evidence of dissection. Nonspecific mediastinal and hilar adenopathy. Patchy areas of groundglass infiltrates in both upper lobes. Diffuse hazy groundglass opacities in willard th lower lobes which could represent edema or infiltrate. Small bilateral effusions. Images through the upper abdomen appear unremarkable. Soft tissues of the thorax appear unremarkable. Osseous structures of the thorax appear unremarkable. IMPRESSION: 1. No evidence of pulmonary embolus 2. Patchy areas of groundglass infiltrate in both upper lobes. This could represent Covid pneumonia. Hazy groundglass opacities in the lower lobes could represent pneumonia or edema. Small bilateral eff usions.
[2019-11-26] MEDS ORDERED: Dexamethasone 10 MG/ML VIAL ONE (10:27)
[2019-11-26] MEDS ORDERED: Azithromycin 500 MG VIAL ONE (10:27)
[2019-11-26] MEDS ORDERED: Aspirin Chewable 81 MG TAB ONE (10:27)
[2019-11-26] MEDS ORDERED: Enoxaparin Sodium 80 MG/0.8 ML SYRINGE ONE (10:41)
--- NOTE | 2019-11-26 11:20 | HP ---
PRIMARY CARE PROVIDER: Dr. Akers. Referred to the Hospitalist Service by [facility] Emergency Room. HISTORY: The patient with a 3-day history of fever, cough, shortness of breath. She had a COVID test 2 days ago, that was negative. Her saturations up until last night are in the 90s. This morning, she was noted to have perioral cellulitis, O2 sat of 79%. She is brought to the emergency room. She is referred for admission. PAST MEDICAL HISTORY: Pertinent for diabetes mellitus type 2 with chronic kidney disease. She has a history of breast cancer and a left mastectomy, hypothyroidism, atrial fibrillation, diabetes mellitus as mentioned before, hypertension, and dementia. PAST SURGICAL HISTORY: Bilateral knee replacement, cardiac catheterization, left mastectomy, appendectomy, and cholecystectomy. CURRENT MEDICATIONS: 1. Aspirin 81 mg a day. 2. Wellbutrin 150 mg a day. 3. Digoxin 0.25 mg a day. 4. Zetia 10 mg a day. 5. Lasix 40 mg every other day. 6. Sliding scale insulin. 7. Insulin glargine 30 units subcu in the morning and 20 in the evening. 8. Levothyroxine 125 mcg a day. 9. Potassium chloride 30 mEq every other day. 10. Crestor 20 mg a day. 11. Zoloft 100 mg at bedtime. 12. Amlodipine 5 mg a day. 13. Metformin 500 mg twice a day. 14. Tizanidine 2 mg p.o. at bedtime p.r.n. ALLERGIES: LISINOPRIL AND MAGNOLIA INHIBITORS CAUSING ANGIOEDEMA . SOCIAL HISTORY: , stop smoking 20+ years ago. No alcohol or tobacco. DNR status. Daughter at bedside is surrogate decision maker. FAMILY HISTORY: Unobtainable. REVIEW OF SYSTEMS: Unobtainable due to dementia. PHYSICAL EXAMINATION: GENERAL: The patient is alert. VITAL SIGNS: Blood pressure 147/67, pulse 50 to 70, respirations 16, and O2 sat is currently 95 on room air. HEENT: Examination of her head, eyes, ears, nose, and throat reveal pupils equal and round with implants. Extraocular movements are intact. Sclerae are white. Tympanic membranes are clear. Oral mucous membrane is dry. NECK: No jugular venous distention, adenopathy or thyromegaly. CHEST: Diffuse rales, coarse breath sounds. HEART: Regular rate and rhythm, accentuated heart sounds, 2/6 harsh systolic murmur. ABDOMEN: Soft. Bowel sounds are normal. There is no hepatosplenomegaly. No masses. No rebound. EXTREMITIES: No cyanosis, clubbing or edema. PULSES: Carotid, radial, and femoral pulses intact, symmetric. Pedal pulses diminished. SKIN: Warm and dry without bruises or rash. HEME/LYMPH: No tender or swollen lymph nodes in axilla, inguinal or cervical area. NEUROLOGICAL: Moves all extremities. Cranial nerves 2 through 12 grossly intact. DIAGNOSTIC DATA: Chest x-ray personally reviewed, some mild fluffy infiltrates most compatible with pneumonic episode, borderline cardiomegaly, pacemaker in right upper chest. A CT of the thorax has been done, no pulmonary embolus, patchy areas of ground-glass in both upper lobes consistent with COVID pneumonia. EKG has been done. I have not been able to locate done in the emergency room. We will find it and review. LABORATORY DATA: White count 13.6 with an absolute lymphopenia, platelet count 219, and hemoglobin 8.3. D-dimer 4.7. Sodium 134, potassium 5.0, BUN 30, creatinine 1.43, and blood sugar 175. Lactic acid 1.2. Liver function tests normal. Troponin 0.06. BNP 414. ADMITTING DIAGNOSIS: 1. COVID pneumonia despite negative COVID test. 2. Acute respiratory failure with hypoxemia. 3. Diabetes mellitus, type 2, insulin dependent with chronic kidney disease stage 3; history of atrial fibrillation with pacemaker; history of breast cancer, post mastectomy; chronic anemia documented in the past. The patient is scheduled for EGD and colonoscopy in the near future. Systolic heart murmur, an echo will be done during her hospital stay. PLAN: 1. Blood cultures have been drawn. She has been started on broad-spectrum antibiotics. 2. O2 supplementation as needed. 3. Accu-Chek sliding scale. 4. Selected home medicines. 5. We will discuss with Infectious Disease. Job ID: [id number]
[2019-11-26] MEDS ORDERED: Ondansetron PF 4 MG/2 ML Vial IVP PRN (11:32)
[2019-11-26] MEDS ORDERED: Dextrose 5% in Water 1,000 ML IV PRN (11:32)
[2019-11-26] MEDS ORDERED: Sodium Chloride 0.9% 1,000 ML IV SCH (11:32)
[2019-11-26] MEDS ORDERED: Acetaminophen 325 MG TAB PO PRN (11:32)
[2019-11-26] MEDS ORDERED: Dextrose 50% Abboject 50 ML SYRINGE SLOW IVP PRN (11:32)
[2019-11-26] MEDS ORDERED: Iopamidol-370 76% 500 ML 1 ML ONE (12:25)
[2019-11-26] MEDS ORDERED: Iopamidol 370 76% 100 ML VIAL ONE (12:26)
[2019-11-26 15:28] VITALS: BMI 25.2
[2019-11-26] MEDS: HumaLOG 300 UNITS/3 ML VIAL SC PRN (16:20)
[2019-11-26] MEDS: Ascorbic Acid 500 mg Chewable Tablet PO SCH (20:47)
[2019-11-27] MEDS: HumaLOG 300 UNITS/3 ML VIAL SC PRN ×2 (05:40→23:13)
[2019-11-27 06:08] LABS: #Lymphocytes 1.3 thou/uL (1.20-3.40); #Monocytes 0.7 thou/uL (0.11-0.59); #Neutrophils 6.7 thou/uL (1.40-6.50); %Basophils 0.1 % (0.0-1.0); %Eosinophils 0.4 % (0.0-10.0); %Lymphocytes 15.1 % (21.0-51.0); %Monocytes 7.7 % (0.0-10.0); %Neutrophils 76.7 % (42.0-75.0); Hemoglobin 7.5 g/dL (12.0-16.0); Mean Corpuscular HGB CONC 30.7 g/dL (32.0-36.0); Mean Corpuscular Hemoglobin 26.3 pg (27.0-31.0); Mean Corpuscular Volume 85.7 fL (78.0-98.0); Mean Platelet Volume 7.3 fL (7.4-10.4); Platelet Count 196 thou/uL (130-400); RBC Distribution Width 15.3 % (11.5-14.5); Red Blood Cell (RBC) Count 2.86 mill/uL (4.20-5.40); White Blood Cell (WBC) Count 8.7 thou/uL (4.8-10.8)
[2019-11-27 06:25] LABS: Anion Gap 13 mmol/L (10-20); BUN (Urea Nitrogen) 33 mg/dL (9.8-20.1); Calc. Creatinine Clearance 37 mL/min (70-130); Calcium 8.1 mg/dL (7.8-10.44); Carbon Dioxide 23 mmol/L (23-31); Chloride 105 mmol/L (98-107); Estimated GFR-MDRD 37; Glucose 134 mg/dL (83-110); Sodium 136 mmol/L (136-145)
[2019-11-27] MEDS: Ascorbic Acid 500 mg Chewable Tablet PO SCH ×3 (08:05→20:35)
[2019-11-27] MEDS: Enoxaparin Sodium 30 MG/0.3 ML SYRINGE SC SCH (08:05)
[2019-11-27] MEDS: Zinc Sulfate 220 MG CAP PO SCH (08:06)
[2019-11-27] MEDS: cefTRIAXone\\ROCEPHIN 1 GM in Sodium Chloride 0.9% 100 ML IVPB SCH (09:37)
[2019-11-27] MEDS: Azithromycin 500 MG in Sodium Chloride 0.9% 250 ML 250 ML IVPB SCH (10:29)
[2019-11-27] MEDS ORDERED: traMADol HCl 50 MG TAB PO PRN ×2 (11:52)
[2019-11-27] MEDS ORDERED: Non-Formulary Item 1 EACH (Tizanidine Hcl [Tizanidine Hcl] 2 MG) PO PRN (11:52)
[2019-11-27] MEDS ORDERED: tiZANidine HCl 4 MG TAB PO PRN (11:56)
[2019-11-27] MEDS ORDERED: Furosemide 20 MG TAB PO SCH (12:00)
[2019-11-27] MEDS ORDERED: Potassium Chloride 10 MEQ TAB PO SCH (12:00)
[2019-11-27] MEDS: Acetaminophen 325 MG TAB PO SCH ×3 (12:34→23:13)
[2019-11-27] MEDS: Potassium Chloride 10 MEQ TAB PO SCH (12:36)
[2019-11-27] MEDS: Furosemide 20 MG TAB PO SCH (12:36)
[2019-11-27] MEDS ORDERED: Dexamethasone 4 MG TAB PO SCH (14:15)
--- NOTE | 2019-11-27 18:37 | PDOC.HOSPP ---
- Subjective Subjective: Seen and examined. She is breathing comfortably on room air when I walk in the room. States that she is feeling better. No new complaints. Time was of given for questions, all answered in detail. - Objective Vital Signs & Weight: Vital Signs (12 hours) Temp Pulse Resp BP Pulse Ox 11/27/19 08:00 100 11/27/19 07:30 98.1 F 79 18 155/75 H 100 Weight Weight 166 lb 4 oz I&O: 11/26/19 11/27/19 11/28/19 06:59 06:59 06:59 Intake Total 240 840 Balance 240 840 Result Diagrams: 11/27/19 05:56 11/27/19 05:56 Radiology Reviewed by me: Yes Hospitalist ROS - Review of Systems All other systems reviewed; all pertinent +/- noted in HPI/Subj - Medication Medications: Active Medications Generic Name Dose Route Start Last Admin Trade Name Freq PRN Reason Stop Dose Admin Acetaminophen 650 mg 11/26/19 11:32 11/26/19 22:18 Tylenol PO 650 mg Q4H PRN Administration Headache/Fever/Mild Pain (1-3) Acetaminophen 650 mg 11/27/19 12:00 11/27/19 17:50 Tylenol PO 650 mg Q6HR HARMONY Administration Ascorbic Acid 500 mg 11/26/19 21:00 11/27/19 14:42 Vitamin C PO 500 mg TID HARMONY Administration Enoxaparin Sodium 30 mg 11/27/19 09:00 11/27/19 08:05 Lovenox SC 30 mg 0900 HARMONY Administration Furosemide 40 mg 11/27/19 12:00 11/27/19 12:36 Lasix PO Not Given Q2DAYS@1200 HARMONY Azithromycin 500 mg/ Sodium 250 mls @ 250 mls/hr 11/27/19 11:00 11/27/19 10: 29 Chloride IVPB 250 mls 1100 HARMONY Administration Ceftriaxone Sodium 1 gm/ 100 mls @ 200 mls/hr 11/27/19 10:00 11/27/19 09:37 Sodium Chloride IVPB 100 mls 1000 HARMONY Administration Insulin Human Lispro 0 units 11/26/19 11:32 11/27/19 05:40 Humalog SC 2 unit .MODERATE SLIDING SC PRN Administration Moderate Correctional Scale Potassium Chloride 30 meq 11/27/19 12:00 11/27/19 12:36 Klor-Con 10 PO Not Given Q2DAYS@1200 ON LICENSE OF [facility] Zinc Sulfate 220 mg 11/27/19 09:00 11/27/19 08:06 Zinc Sulfate PO 220 mg DAILY ON LICENSE OF [facility] Administration - Exam General Appearance: NAD, awake alert Eye: PERRL, anicteric sclera ENT: normocephalic atraumatic, moist mucosa Neck: supple, symmetric, no lymphadenopathy Heart: no murmur, no gallops, no rubs Respiratory: no rales, no ronchi, normal chest expansion, wheezes Gastrointestinal: soft, non-tender, non-distended, no guarding, no rigidity Extremities: no edema Skin: no lesions, no rashes Neurological: cranial nerve grossly intact, no focal deficits Musculoskeletal: generalized weakness Psychiatric: normal affect, oriented to person, oriented to place Hosp A/P (1) Pneumonia due to 2019 novel coronavirus Code(s): U07.1 - COVID-19; J12.89 - OTHER VIRAL PNEUMONIA Status: Acute (2) Shortness of breath Code(s): R06.02 - SHORTNESS OF BREATH Status: Acute (3) Cough Code(s): R05 - COUGH Status: Acute (4) Atrial flutter Code(s): I48.92 - UNSPECIFIED ATRIAL FLUTTER Status: Acute (5) Falls Code(s): W19.XXXA - UNSPECIFIED FALL, INITIAL ENCOUNTER Status: Acute (6) Near syncope Status: Acute (7) HTN (hypertension) Code(s): I10 - ESSENTIAL (PRIMARY) HYPERTENSION Status: Chronic Qualifiers: Hypertension type: essential hypertension Qualified Code(s): I10 - Essential (primary) hypertension (8) DM (diabetes mellitus) Code(s): E11.9 - TYPE 2 DIABETES MELLITUS WITHOUT COMPLICATIONS Status: Acute (9) HLD (hyperlipidemia) Code(s): E78.5 - HYPERLIPIDEMIA, UNSPECIFIED Status: Acute (10) Atrial fibrillation Code(s): I48.91 - UNSPECIFIED ATRIAL FIBRILLATION Status: Acute - Plan Plan: medical unit infectious disease consultation, recommendations appreciated Supplemetnal oxygen as needed on appropriate maximal medical therapy for Covid pneumonia IV antibiotics steroids continue other home medications as able blood sugar control with insulin GI prophylaxis DVT prophylaxis
--- NOTE | 2019-11-27 19:05 | CON ---
DATE OF CONSULTATION: 11/27/2019 REASON FOR CONSULTATION: Pneumonia, possible COVID. HISTORY OF PRESENT ILLNESS: An 84-year-old patient of Dr. Akers, who has a history of bradycardia and near-syncope in the past as well as hypertension and type 2 diabetes mellitus, and on 11/07/2019, fell down and developed a left flank hematoma. She has had been having several falls at home. Anyway, she presented to the emergency department, had evaluation. She dropped her hemoglobin. She was then admitted and accepted by rehab. Now, the patient presented with a 3-day history of fever, cough, and dyspnea with a negative COVID test, which was done on 11/23. On the morning of admission, she had evidence of cyanosis, O2 saturations were 79% on room air. She was brought to the emergency room and admitted. Initial findings included BP 160/77, pulse 80, respirations described as 20, temperature 100.8, and O2 saturations were 94 on 4 L nasal cannula O2. Lung sounds were described as clear and the heart examination was described as normal. She had a little bit of bruising in the posterior aspect of the right thigh and the patient has been started on azithromycin, Rocephin, and Decadron. Currently, Ms. Kirkland is awake. She has very poor recollection of events. She obviously has chronic cognitive issues and I cannot rely on her account to obtain further information or clarification. In terms of review of systems, she denies any headaches. She has pain in the right thigh and right hip area. She denies any abdominal pain or genitourinary symptoms. MEDICAL HISTORY: 1. Type 2 diabetes. 2. CKD, stage 3. 3. Breast cancer, in remission after mastectomy. 4. AFib. 5. Hypertension. 6. Dementia. 7. She has had recurrent episodes of falls. SURGICAL HISTORY: 1. Bilateral knee replacements. 2. Cardiac cath. 3. Mastectomy, left side. 4. Appendectomy. 5. Cholecystectomy. ALLERGIES: LISINOPRIL WITH ANGIOEDEMA. SOCIAL HISTORY: . Daughter works in [facility] [employer] [facility] [employer] reportedly. FAMILY HISTORY: Noncontributory otherwise. CURRENT MEDICATION LIST: 1. Ascorbic acid. 2. Zithromax. 3. Rocephin. 4. Decadron daily. 5. Digoxin. 6. Enoxaparin. 7. Zetia. 8. Furosemide. 9. Rosuvastatin. 10. Tramadol. PHYSICAL EXAMINATION: VITAL SIGNS: T-max 98.1, blood pressure 150/75, pulse 79, respiratory rate 22, and O2 saturations are 100 on 2 L nasal cannula. SKIN: Areas of bruising in the posterior right thigh. Peripheral IV access. She is voiding in the diaper. No lymphadenopathy. HEENT: Ocular movements conjugate. She has one area of dried hemorrhagic scab, quite small at the nose bridge, probably from one of the falls. Oral cavity is not remarkable. NECK: Supple. No jugular vein distention. LUNGS: Symmetric. Clear breath sounds. HEART: S1 and S2. Regular rate. ABDOMEN: Soft. EXTREMITIES: The range of motion of the right and left hip is within normal limits with no pain. Log rolling maneuver is normal. Pulses 1+ in dorsalis pedis. Plantar responses are flexor. Moves extremities equally. NEUROLOGIC: She is awake. She knows her name. She knew she was in the hospital, but otherwise her recollection is very limited. Her speech appears to be okay, though she has some difficulty in finding some words. LABORATORY DATA: Sodium 134 and 136 and creatinine started at 1.43 and now is 1.38. Liver profile normal. CRP 9.54. Ferritin was 109. Albumin 3.4. D-dimer 4.7. Urinalysis with greater than 50 wbc's. A COVID-19 from 11/25 was not detected. The patient had a CT angio of the chest on 11/25 with no evidence of pulmonary embolism. There were patchy areas of ground-glass infiltrates in upper lobes and the lower lobes as well, hazy ground-glass opacities. A hip x-ray did not show any evidence of fracture. ASSESSMENT: 1. Type 2 diabetes. 2. Breast cancer, in remission after mastectomy. 3. Recent episodes of falls with no fracture identified. 4. Cognitive dysfunction with dementia. 5. Ground-glass areas of pneumonia, scattered throughout both right and left lungs in various distributions including upper, middle, and lower lobes. 6. Had one prior negative COVID test. DISCUSSION: The patient has a very high pretest likelihood for SARS-CoV-2 infection, so this one negative test does not rule out infectious process. We will need to continue managing as COVID and agree with the current measures, but will probable therapy in the next few days. Check SARS-CoV antibody level and a repeat SARS-CoV PCR tomorrow. Job ID: [id number]
[2019-11-27] MEDS: Insulin Glargine 20 UNITS in Pre-Filled Syringe 1 EACH SC SCH (20:35)
[2019-11-27] MEDS: Aspirin 81 mg Enteric Coated Tablet PO SCH (20:35)
[2019-11-27] MEDS: Digoxin 0.25 MG TAB PO SCH (20:35)
[2019-11-27] MEDS: Rosuvastatin 20 MG TAB PO SCH (20:36)
[2019-11-28] MEDS: Levothyroxine Sodium 125 MCG TAB PO SCH (05:16)
[2019-11-28] MEDS: Acetaminophen 325 MG TAB PO SCH ×3 (05:16→17:17)
[2019-11-28 06:37] LABS: Anion Gap 11 mmol/L (10-20); BUN (Urea Nitrogen) 28 mg/dL (9.8-20.1); Calc. Creatinine Clearance 44 mL/min (70-130); Carbon Dioxide 26 mmol/L (23-31); Chloride 104 mmol/L (98-107); Estimated GFR-MDRD 45; Glucose 104 mg/dL (83-110); Potassium 4.6 mmol/L (3.5-5.1); Sodium 136 mmol/L (136-145)
[2019-11-28 06:44] LABS: #Lymphocytes 1.1 thou/uL (1.20-3.40); #Monocytes 0.6 thou/uL (0.11-0.59); #Neutrophils 6.8 thou/uL (1.40-6.50); %Basophils 0.1 % (0.0-1.0); %Eosinophils 0.4 % (0.0-10.0); %Lymphocytes 12.7 % (21.0-51.0); %Monocytes 6.9 % (0.0-10.0); %Neutrophils 79.9 % (42.0-75.0); Hemoglobin 7.6 g/dL (12.0-16.0); Mean Corpuscular HGB CONC 31.1 g/dL (32.0-36.0); Mean Corpuscular Hemoglobin 26.4 pg (27.0-31.0); Mean Corpuscular Volume 84.7 fL (78.0-98.0); Mean Platelet Volume 6.6 fL (7.4-10.4); Platelet Count 213 thou/uL (130-400); RBC Distribution Width 15.2 % (11.5-14.5); Red Blood Cell (RBC) Count 2.87 mill/uL (4.20-5.40); White Blood Cell (WBC) Count 8.5 thou/uL (4.8-10.8)
[2019-11-28] MEDS: Dexamethasone 4 MG TAB PO SCH (08:58)
[2019-11-28] MEDS: Ascorbic Acid 500 mg Chewable Tablet PO SCH ×3 (08:58→21:02)
[2019-11-28] MEDS: Amlodipine 5 MG TAB PO SCH (08:59)
[2019-11-28] MEDS: Zinc Sulfate 220 MG CAP PO SCH (08:59)
[2019-11-28] MEDS: Multivit, Therapeutic 1 TAB PO SCH (08:59)
[2019-11-28] MEDS: Ezetimibe 10 MG TAB PO SCH (08:59)
[2019-11-28] MEDS: Bupropion 150 MG XL TAB PO SCH (08:59)
[2019-11-28] MEDS: Insulin Glargine 30 UNITS in Pre-Filled Syringe 1 EACH SC SCH (09:00)
[2019-11-28] MEDS: Enoxaparin Sodium 30 MG/0.3 ML SYRINGE SC SCH (09:00)
[2019-11-28] MEDS: cefTRIAXone\\ROCEPHIN 1 GM in Sodium Chloride 0.9% 100 ML IVPB SCH (09:01)
[2019-11-28 11:44] LABS: SARS-CoV-2 IgG Ab Non-Reactive (NonReactive); SARS-CoV-2 IgG Index 0.03 S/CO (< 1.40)
[2019-11-28] MEDS: Azithromycin 500 MG in Sodium Chloride 0.9% 250 ML 250 ML IVPB SCH (11:49)
[2019-11-28 12:29] LABS: SARS-CoV-2 MS2 Positive; SARS-CoV-2 N Gene Negative; SARS-CoV-2 S Gene Negative; SARS-CoV-2 orf1ab Negative
--- NOTE | 2019-11-28 14:47 | PDOC.HOSPP ---
- Subjective Subjective: Seen and examined. Patient saturating well on low-flow nasal cannula this morning. She is having some coughing the overall states that she is feeling better. States that she's feeling strong enough to get out of bed with the help of staff. Will add PT and OT evaluation to help mobilize the patient. Patient progressing well. - Objective Vital Signs & Weight: Vital Signs (12 hours) Temp Pulse Resp BP Pulse Ox 11/28/19 14:10 70 16 141/70 H 100 11/28/19 09:10 99 11/28/19 09:05 98.1 F 62 18 178/70 H 99 11/28/19 05:29 99 11/28/19 04:00 98.2 F 66 18 160/70 H 99 Weight Weight 166 lb 4 oz I&O: 11/27/19 11/28/19 11/29/19 06:59 06:59 06:59 Intake Total 240 1340 Output Total 700 Balance 240 640 Result Diagrams: 11/28/19 05:59 11/28/19 05:59 Radiology Reviewed by me: Yes Hospitalist ROS - Review of Systems All other systems reviewed; all pertinent +/- noted in HPI/Subj - Medication Medications: Active Medications Generic Name Dose Route Start Last Admin Trade Name Freq PRN Reason Stop Dose Admin Acetaminophen 650 mg 11/26/19 11:32 11/26/19 22:18 Tylenol PO 650 mg Q4H PRN Administration Headache/Fever/Mild Pain (1-3) Acetaminophen 650 mg 11/27/19 12:00 11/28/19 11:49 Tylenol PO 650 mg Q6HR HARMONY Administration Amlodipine Besylate 5 mg 11/28/19 09:00 11/28/19 08:59 Norvasc PO 5 mg DAILY HARMONY Administration Ascorbic Acid 500 mg 11/26/19 21:00 11/28/19 14:05 Vitamin C PO 500 mg TID HARMONY Administration Aspirin 81 mg 11/27/19 21:00 11/27/19 20:35 Ecotrin PO 81 mg HS HARMONY Administration Bupropion HCl 150 mg 11/28/19 09:00 11/28/19 08:59 Wellbutrin Xl PO 150 mg DAILY HARMONY Administration Dexamethasone 6 mg 11/28/19 08:00 11/28/19 08:58 Decadron PO 6 mg QAM-WM HARMONY Administration Digoxin 0.25 mg 11/27/19 21:00 11/27/19 20:35 Lanoxin PO 0.25 mg HS HARMONY Administration Ezetimibe 10 mg 11/28/19 09:00 11/28/19 08:59 Zetia PO 10 mg DAILY HARMONY Administration Enoxaparin Sodium 30 mg 11/27/19 09:00 11/28/19 09:00 Lovenox SC 30 mg 0900 HARMONY Administration Furosemide 40 mg 11/27/19 12:00 11/27/19 12:36 Lasix PO Not Given Q2DAYS@1200 HARMONY Azithromycin 500 mg/ Sodium 250 mls @ 250 mls/hr 11/27/19 11:00 11/28/19 11: 49 Chloride IVPB 250 mls 1100 HRAMONY Administration Ceftriaxone Sodium 1 gm/ 100 mls @ 200 mls/hr 11/27/19 10:00 11/28/19 09:01 Sodium Chloride IVPB 100 mls 1000 HARMONY Administration Insulin Glargine 20 units/ 0.2 mls @ 0 mls/hr 11/27/19 21:00 11/27/19 20:35 Miscellaneous Medication SC 0.2 mls HS HARMONY Administration Insulin Glargine 30 units/ 0.3 mls @ 0 mls/hr 11/28/19 09:00 11/28/19 09:00 Miscellaneous Medication SC 0.3 mls DAILY HARMONY Administration Insulin Human Lispro 0 units 11/26/19 11:32 11/27/19 05:40 Humalog SC 2 unit .MODERATE SLIDING SC PRN Administration Moderate Correctional Scale Insulin Human Lispro 0 units 11/27/19 22:32 11/27/19 23:13 Humalog SC 3 unit .BEDTIME SLIDING SC PRN Administration Bedtime Correctional Scale Levothyroxine Sodium 125 mcg 11/28/19 06:00 11/28/19 05:16 Synthroid PO 125 mcg 0600 HARMONY Administration Multivitamins 1 tab 11/28/19 09:00 11/28/19 08:59 Theragran PO 1 tab DAILY [facility] Administration Potassium Chloride 30 meq 11/27/19 12:00 11/27/19 12:36 Klor-Con 10 PO Not Given Q2DAYS@1200 HAMRONY Rosuvastatin Calcium 20 mg 11/27/19 21:00 11/27/19 20:36 Crestor PO 20 mg HS HARMONY Administration Sertraline HCl 100 mg 11/27/19 21:00 11/27/19 20:35 Zoloft PO 100 mg HS HARMONY Administration Zinc Sulfate 220 mg 11/27/19 09:00 11/28/19 08:59 Zinc Sulfate PO 220 mg DAILY HARMONY Administration - Exam General Appearance: NAD, awake alert Eye: anicteric sclera ENT: normocephalic atraumatic, moist mucosa Neck: supple, symmetric, no lymphadenopathy Heart: no murmur, no gallops, no rubs Respiratory: no rales, no ronchi, normal chest expansion, no tachypnea, wheezes Gastrointestinal: soft, non-tender, no guarding, no rigidity Extremities: 1+ LE edema Skin: no lesions, no rashes Neurological: cranial nerve grossly intact, no focal deficits Musculoskeletal: generalized weakness Psychiatric: normal affect, normal behavior, oriented to person, oriented to place, oriented to time Hosp A/P (1) Pneumonia due to 2019 novel coronavirus Code(s): U07.1 - COVID-19; J12.89 - OTHER VIRAL PNEUMONIA Status: Acute (2) Shortness of breath Code(s): R06.02 - SHORTNESS OF BREATH Status: Acute (3) Cough Code(s): R05 - COUGH Status: Acute (4) Atrial flutter Code(s): I48.92 - UNSPECIFIED ATRIAL FLUTTER Status: Acute (5) Falls Code(s): W19.XXXA - UNSPECIFIED FALL, INITIAL ENCOUNTER Status: Acute (6) Near syncope Status: Acute (7) HTN (hypertension) Code(s): I10 - ESSENTIAL (PRIMARY) HYPERTENSION Status: Chronic Qualifiers: Hypertension type: essential hypertension Qualified Code(s): I10 - Essential (primary) hypertension (8) DM (diabetes mellitus) Code(s): E11.9 - TYPE 2 DIABETES MELLITUS WITHOUT COMPLICATIONS Status: Acute (9) HLD (hyperlipidemia) Code(s): E78.5 - HYPERLIPIDEMIA, UNSPECIFIED Status: Acute (10) Atrial fibrillation Code(s): I48.91 - UNSPECIFIED ATRIAL FIBRILLATION Status: Acute - Plan Plan: medical unit infectious disease consultation, recommendations appreciated Supplemetnal oxygen as needed to maintain O2 saturations on appropriate maximal medical therapy for Covid pneumonia IV antibiotics steroids breathing treatments PT/OT eval and treat continue other home medications as able blood sugar control with insulin GI prophylaxis DVT prophylaxis
[2019-11-28] MEDS: Aspirin 81 mg Enteric Coated Tablet PO SCH (21:02)
[2019-11-28] MEDS: Insulin Glargine 20 UNITS in Pre-Filled Syringe 1 EACH SC SCH (21:02)
[2019-11-28] MEDS: Digoxin 0.25 MG TAB PO SCH (21:02)
[2019-11-28] MEDS: Rosuvastatin 20 MG TAB PO SCH (21:02)
[2019-11-29] MEDS: Acetaminophen 325 MG TAB PO SCH ×4 (00:20→18:03)
[2019-11-29] MEDS: Levothyroxine Sodium 125 MCG TAB PO SCH (05:10)
[2019-11-29] MEDS: Bupropion 150 MG XL TAB PO SCH (08:44)
[2019-11-29] MEDS: Enoxaparin Sodium 30 MG/0.3 ML SYRINGE SC SCH (08:44)
[2019-11-29] MEDS: Ezetimibe 10 MG TAB PO SCH (08:44)
[2019-11-29] MEDS: Zinc Sulfate 220 MG CAP PO SCH (08:44)
[2019-11-29] MEDS: Ascorbic Acid 500 mg Chewable Tablet PO SCH ×3 (08:44→20:41)
[2019-11-29] MEDS: Multivit, Therapeutic 1 TAB PO SCH (08:45)
[2019-11-29] MEDS: Amlodipine 5 MG TAB PO SCH (08:45)
[2019-11-29] MEDS: Insulin Glargine 30 UNITS in Pre-Filled Syringe 1 EACH SC SCH (08:45)
[2019-11-29] MEDS: Dexamethasone 4 MG TAB PO SCH (08:45)
[2019-11-29] MEDS ORDERED: Polyethylene Glycol 3350 17 GM Packet PO PRN (10:11)
[2019-11-29] MEDS ORDERED: Lidocaine Viscous Sol 2% 15 ml UD Cup SSP PRN (10:12)
[2019-11-29] MEDS: Potassium Chloride 10 MEQ TAB PO SCH (10:45)
[2019-11-29] MEDS: Furosemide 20 MG TAB PO SCH (10:46)
[2019-11-29] MEDS: cefTRIAXone\\ROCEPHIN 1 GM in Sodium Chloride 0.9% 100 ML IVPB SCH (10:47)
[2019-11-29] MEDS: Azithromycin 500 MG in Sodium Chloride 0.9% 250 ML 250 ML IVPB SCH (12:44)
--- NOTE | 2019-11-29 15:43 | PDOC.HOSPP ---
- Subjective Subjective: Seen and examined. Breathing comfortably on room air today. She is having oral sores that cause her discomfort. Complaining of constipation. Otherwise she is feeling much better from covert symptoms. Discuss the case with her daughter May over the phone, time was given for questions, all answered in detail. - Objective Vital Signs & Weight: Vital Signs (12 hours) Temp Pulse Resp BP Pulse Ox 11/29/19 08:50 98.1 F 65 16 167/71 H 97 11/29/19 03:52 98 Weight Weight 166 lb 4 oz I&O: 11/28/19 11/29/19 11/30/19 06:59 06:59 06:59 Intake Total 1340 2150 Output Total 700 2100 Balance 640 50 Result Diagrams: 11/28/19 05:59 11/28/19 05:59 Additional Labs: Accuchecks 11/29/19 11/29/19 11:00 05:21 POC Glucose 161 H 67 L Radiology Reviewed by me: Yes Hospitalist ROS - Review of Systems All other systems reviewed; all pertinent +/- noted in HPI/Subj - Medication Medications: Active Medications Generic Name Dose Route Start Last Admin Trade Name Freq PRN Reason Stop Dose Admin Acetaminophen 650 mg 11/26/19 11:32 11/26/19 22:18 Tylenol PO 650 mg Q4H PRN Administration Headache/Fever/Mild Pain (1-3) Acetaminophen 650 mg 11/27/19 12:00 11/29/19 10:46 Tylenol PO 650 mg Q6HR HARMONY Administration Amlodipine Besylate 5 mg 11/28/19 09:00 11/29/19 08:45 Norvasc PO 5 mg DAILY HARMONY Administration Ascorbic Acid 500 mg 11/26/19 21:00 11/29/19 15:32 Vitamin C PO 500 mg TID HARMONY Administration Aspirin 81 mg 11/27/19 21:00 11/28/19 21:02 Ecotrin PO 81 mg HS HARMONY Administration Bupropion HCl 150 mg 11/28/19 09:00 11/29/19 08:44 Wellbutrin Xl PO 150 mg DAILY HARMONY Administration Dexamethasone 6 mg 11/28/19 08:00 11/29/19 08:45 Decadron PO 6 mg QAM-WM HARMONY Administration Digoxin 0.25 mg 11/27/19 21:00 11/28/19 21:02 Lanoxin PO 0.25 mg HS HARMONY Administration Ezetimibe 10 mg 11/28/19 09:00 11/29/19 08:44 Zetia PO 10 mg DAILY HARMONY Administration Enoxaparin Sodium 30 mg 11/27/19 09:00 11/29/19 08:44 Lovenox SC 30 mg 0900 HARMONY Administration Furosemide 40 mg 11/27/19 12:00 11/29/19 10:46 Lasix PO 40 mg Q2DAYS@1200 HARMONY Administration Azithromycin 500 mg/ Sodium 250 mls @ 250 mls/hr 11/27/19 11:00 11/29/19 12: 44 Chloride IVPB 250 mls 1100 HARMONY Administration Ceftriaxone Sodium 1 gm/ 100 mls @ 200 mls/hr 11/27/19 10:00 11/29/19 10:47 Sodium Chloride IVPB 100 mls 1000 HARMONY Administration Insulin Glargine 20 units/ 0.2 mls @ 0 mls/hr 11/27/19 21:00 11/28/19 21:02 Miscellaneous Medication SC 0.2 mls HS HARMONY Administration Insulin Glargine 30 units/ 0.3 mls @ 0 mls/hr 11/28/19 09:00 11/29/19 08:45 Miscellaneous Medication SC 0.3 mls DAILY HARMONY Administration Insulin Human Lispro 0 units 11/26/19 11:32 11/27/19 05:40 Humalog SC 2 unit .MODERATE SLIDING SC PRN Administration Moderate Correctional Scale Insulin Human Lispro 0 units 11/27/19 22:32 11/27/19 23:13 Humalog SC 3 unit .BEDTIME SLIDING SC PRN Administration Bedtime Correctional Scale Levothyroxine Sodium 125 mcg 11/28/19 06:00 11/29/19 05:10 Synthroid PO 125 mcg 0600 HARMONY Administration Lidocaine HCl 15 ml 11/29/19 10:12 11/29/19 15:33 Xylocaine 2% Viscous SSP 15 ml TIDPRN PRN Administration Mouth Irritation Multivitamins 1 tab 11/28/19 09:00 11/29/19 08:45 Theragran PO 1 tab DAILY HARMONY Administration Polyethylene Glycol 17 gm 11/29/19 10:11 11/29/19 10:44 Miralax PO 17 gm DAILYPRN PRN Administration Constipation Potassium Chloride 30 meq 11/27/19 12:00 11/29/19 10:45 Klor-Con 10 PO 30 meq Q2DAYS@1200 HARMONY Administration Rosuvastatin Calcium 20 mg 11/27/19 21:00 11/28/19 21:02 Crestor PO 20 mg HS HARMONY Administration Sertraline HCl 100 mg 11/27/19 21:00 11/28/19 21:02 Zoloft PO 100 mg HS HARMONY Administration Zinc Sulfate 220 mg 11/27/19 09:00 11/29/19 08:44 Zinc Sulfate PO 220 mg DAILY HARMONY Administration - Exam General Appearance: NAD, awake alert Eye: PERRL ENT: normocephalic atraumatic, moist mucosa Neck: supple, symmetric, no lymphadenopathy Heart: no murmur, no gallops, no rubs Respiratory: no rales, no ronchi, normal chest expansion, wheezes Gastrointestinal: soft, non-tender, no guarding, no rigidity Extremities: no edema Skin: no lesions, no rashes Neurological: cranial nerve grossly intact, no focal deficits Musculoskeletal: generalized weakness Psychiatric: normal affect, normal behavior Hosp A/P (1) Pneumonia due to 2019 novel coronavirus Code(s): U07.1 - COVID-19; J12.89 - OTHER VIRAL PNEUMONIA Status: Acute (2) Shortness of breath Code(s): R06.02 - SHORTNESS OF BREATH Status: Acute (3) Cough Code(s): R05 - COUGH Status: Acute (4) Atrial flutter Code(s): I48.92 - UNSPECIFIED ATRIAL FLUTTER Status: Acute (5) Falls Code(s): W19.XXXA - UNSPECIFIED FALL, INITIAL ENCOUNTER Status: Acute (6) Near syncope Status: Acute (7) HTN (hypertension) Code(s): I10 - ESSENTIAL (PRIMARY) HYPERTENSION Status: Chronic Qualifiers: Hypertension type: essential hypertension Qualified Code(s): I10 - Essential (primary) hypertension (8) DM (diabetes mellitus) Code(s): E11.9 - TYPE 2 DIABETES MELLITUS WITHOUT COMPLICATIONS Status: Acute (9) HLD (hyperlipidemia) Code(s): E78.5 - HYPERLIPIDEMIA, UNSPECIFIED Status: Acute (10) Atrial fibrillation Code(s): I48.91 - UNSPECIFIED ATRIAL FIBRILLATION Status: Acute - Plan Plan: medical unit infectious disease consultation, recommendations appreciated Supplemetnal oxygen as needed to maintain O2 saturations on appropriate maximal medical therapy for Covid pneumonia IV antibiotics steroids breathing treatments PT/OT eval and treat continue other home medications as able blood sugar control with insulin GI prophylaxis DVT prophylaxis
--- NOTE | 2019-11-29 16:36 | PRG ---
DATE OF SERVICE: 11/29/2019 SUBJECTIVE: Ms. Kirkland is really feeling back to normal. No cough. No dyspnea or abdominal pain. No diarrhea. OBJECTIVE: VITAL SIGNS: She has been afebrile, O2 saturations are 97, 98 on room air, blood pressure 160/71. LUNGS: With a few sparse crackles, but most of it has resolved. No wheezing. HEART: S1, S2. Regular rate. ABDOMEN: Soft, not distended. LABORATORY DATA: SARS-CoV PCR was repeated, negative, and the antibody was negative as well. ASSESSMENT AND DISCUSSION: Type 2 diabetes; breast cancer, in remission after mastectomy; falls; cognitive dysfunction; ground-glass areas of pneumonia, scattered. So, we have 2 negative tests now and 1 negative antibody test. The exact duration of illness is not certain, but it looks like it is at least 2 weeks old. She has pretty much returned to baseline and a very atypical course for COVID pneumonia, so I think it is more likely to be a bacterial pneumonia. I would consider discharge planning on either doxycycline or levofloxacin and discontinue Decadron. I think it is less likely in retrospect that the patient had COVID infection. Job ID: [id number]
[2019-11-29] MEDS: HumaLOG 300 UNITS/3 ML VIAL SC PRN ×2 (18:03→20:51)
[2019-11-29] MEDS: Rosuvastatin 20 MG TAB PO SCH (20:41)
[2019-11-29] MEDS: Digoxin 0.25 MG TAB PO SCH (20:41)
[2019-11-29] MEDS: Aspirin 81 mg Enteric Coated Tablet PO SCH (20:41)
[2019-11-29] MEDS: Insulin Glargine 20 UNITS in Pre-Filled Syringe 1 EACH SC SCH (20:51)
[2019-11-30] MEDS: Acetaminophen 325 MG TAB PO SCH ×3 (02:13→11:15)
[2019-11-30] MEDS: Levothyroxine Sodium 125 MCG TAB PO SCH (06:10)
[2019-11-30 07:49] VITALS: TEMP 98.4
[2019-11-30] MEDS: Insulin Glargine 30 UNITS in Pre-Filled Syringe 1 EACH SC SCH (08:11)
[2019-11-30] MEDS: Zinc Sulfate 220 MG CAP PO SCH (08:12)
[2019-11-30] MEDS: Bupropion 150 MG XL TAB PO SCH (08:13)
[2019-11-30] MEDS: Amlodipine 5 MG TAB PO SCH (08:13)
[2019-11-30] MEDS: Multivit, Therapeutic 1 TAB PO SCH (08:13)
[2019-11-30] MEDS: Ezetimibe 10 MG TAB PO SCH (08:14)
[2019-11-30] MEDS: Dexamethasone 4 MG TAB PO SCH (08:14)
[2019-11-30] MEDS: Ascorbic Acid 500 mg Chewable Tablet PO SCH (08:18)
[2019-11-30] MEDS ORDERED: Lactinex Tablet PO SCH (09:00)
[2019-11-30] MEDS: cefTRIAXone\\ROCEPHIN 1 GM in Sodium Chloride 0.9% 100 ML IVPB SCH (11:15)
[2019-11-30] MEDS: Enoxaparin Sodium 30 MG/0.3 ML SYRINGE SC SCH (11:23)
[2019-11-30 12:24] VITALS: BP 166/69
[2019-11-30] MEDS: Azithromycin 500 MG in Sodium Chloride 0.9% 250 ML 250 ML IVPB SCH (12:30)
--- NOTE | 2019-12-01 04:17 | DIS ---
DATE OF ADMISSION: 11/26/2019 DATE OF DISCHARGE: 11/30/2019 REASON FOR HOSPITALIZATION: Shortness of breath. PROCEDURES PERFORMED AND TREATMENTS RENDERED: The patient had presented to [facility] on 11/26/2019 with shortness of breath, please see full history and physical, radiographic reports, and notes from Emergency Department physician for full details. The patient presenting with shortness of breath, had CT angiography of the chest, please see full report for details, there is no pulmonary embolism identified; however, there are patchy areas of ground-glass infiltrate in both upper lobes, which could represent COVID pneumonia. For this, Infectious Disease doctor, Dr. Alvarado evaluated the patient on 11/27/2019, please see full consultation notes and progress notes for details. The patient was placed on maximum medical therapy for COVID pneumonia including steroids, IV antibiotics, supplemental oxygen, and breathing treatments. With this maximum medical therapy, the patient did have a good response and good recovery. She was successfully weaned off oxygen completely and had a rather rapid recovery. Due to the rapid recovery that she did have and a negative COVID test, it is undeterminable if she actually had a bacterial pneumonia versus COVID pneumonia. Dr. Alvarado recommending the patient to complete a full course of oral antibiotics and these were sent to her preferred pharmacy for her convenience. I discussed the case with the patient's daughter, May, over the phone, time was given for questions, all answered in detail. The patient is recommended safe for discharge with close followup in the outpatient setting with primary care physician in the next 1 to 2 weeks. CONDITION ON DISCHARGE: Stable. SPECIFIC INSTRUCTIONS FOR THE PATIENT/FAMILY: 1. The patient recommended to complete a full course of doxycycline 100 mg one tablet p.o. b.i.d. for a total of seven days, 14 tablets. 2. The patient recommended to take all other home medications without changes. 3. The patient recommended to follow up with primary care physician in the next 5 to 7 days. 4. The patient recommended to self quarantine as able to avoid infection with COVID-19. 5. The patient recommended to return to acute care hospital immediately if signs or symptoms return, worsen, or any other new symptoms occur. TIME SPENT: Greater than 37 minutes spent coordinating care and discharge process. Job ID: [id number]
--- NOTE | 2019-12-01 07:30 | PQF ---
CLINICAL DOCUMENTATION CLARIFICATION FORM: Dear : Jay Monson Date / Time: 12/01/19 7138 Please exercise your independent, professional judgment in responding to the clarification form. Clinical indicators are provided on the bottom of this form for your review Please check appropriate box(es): [ ] Empirically treating Gram Negative Pneumonia [ ] Empirically treating Anaerobic Pneumonia [ ] Covid-19 Pneumonia [ ] Simple Pneumonia [ XX ] Bacterial Pneumonia [ ] Pneumonia of unknown etiology [ ] Other diagnosis [ ] Unable to determine Physician Signature: Date/Time: For continuity of documentation, please document condition throughout progress notes and discharge summary. Thank You. To be completed by CDI/Coding staff for physician review: Present Clinical Indicators - Signs / Symptoms / Labs Results and Location in Medical Record [X] BP 158/52, Pulse 70, Resp 18, Temp 97.8 Vital signs 11/25 [X] WBC 13.6, Neutrophols 84.8, Plt count 219 Laboratory Hematology 11/25 [X] SARS-COV Rap RNA: Not detected Laboratory Serology 11/25 [X] Covid 19- PCR: Not detected Laboratory Serology 11/27 [X] Covid-Cov 2 IgG Ab: non-reactive Laboratory Serology 11/27 [X] Covid-Cov 2 IgG Ab Index: 0.03 Laboratory Serology 11/27 [X] Chest X-ray impression: some mild fluffy infiltrates most compatible with pneumonic episode Imaging Dr Palmer 11/25 [X] 3 day hx of fever, cough and SOB H&P p1 11/25 Dr Yung [X] Covid Pneumonia despite negative Covid test H&P p2 11/25 Dr Yung [X] Very atypical course for Covid Pneumonia, so I think it is more likely to be bacterial pneumonia Pn p1 11/28 Dr Alvarado [X] Chest: diffuse rales, coarse breath sounds H&P p2 11/25 Dr Yung Present Risk Factors Results and Location in Medical Record [X] 84 year-old Female H&P p1 11/25 Dr Yung [X] HTN H&P p1 11/25 Dr Yung [X] CKD H&P p1 11/25 Dr Yung [X] DM H&P p1 11/25 Dr Yung [X] Hx of breast cancer H&P p1 11/25 Dr Yung [X] Dementia H&P p1 11/25 Dr Yung [X] Acute Respiratory failure with hypoxia H&P p3 11/25 Dr Yung [X] Former Smoker H&P p1 11/25 Dr Yung Present Treatments Results and Location in Medical Record [X] IV Vancomyci 1 gm JUL 16 [X] IV Azithromycin 500 mg JUL 16 [X] IV Ceftriaxone 1 gm JUL 16 [X] Oxygen 3L Respiratory Panel 11/25 [X] SARS-COV Rap RNA Laboratory Serology 11/25 [X] Covid 19- PCR: Laboratory Serology 11/27 [X] Covid-Cov 2 IgG Ab Laboratory Serology 11/27 [X] Covid-Cov 2 IgG Ab Index Laboratory Serology 11/27 [X] Chest X-ray Imaging Dr Palmer 11/25 [X] Isolation Ordered Dr Yung 11/25 [X] ID consult Consult Rafita Gomez 11/26 CDS/Tile Grader Signature: Dariana Valdez Phone #: [phone] Date/Time: 12/01/1928 This is a permanent part of the Medical Record [facility]
== END 2019-11-30 13:56 | disposition home health service (06) | DRG 193 ==
LOC: ERS 08:04 → ERHOLD 11:26 → T4-B 15:02
PROVIDERS: ADMIT Internal Medicine; ATTEND Internal Medicine
PROC: 8E0ZXY6 Isolation (ICD-10-PCS; principal; 2019-11-26)
DX: J15.9 Unspecified bacterial pneumonia (principal); J96.01 Acute respiratory failure with hypoxia; I48.92 Unspecified atrial flutter; K12.2 Cellulitis and abscess of mouth; Z20.828 Contact with and (suspected) exposure to other viral communicable diseases; E11.22 Type 2 diabetes mellitus with diabetic chronic kidney disease; I48.91 Unspecified atrial fibrillation; F03.90 Unspecified dementia, unspecified severity, without behavioral disturbance, psychotic disturbance, mood disturbance, and anxiety; Z96.653 Presence of artificial knee joint, bilateral; N18.3 Chronic kidney disease, stage 3 (moderate); D63.1 Anemia in chronic kidney disease; I12.9 Hypertensive chronic kidney disease with stage 1 through stage 4 chronic kidney disease, or unspecified chronic kidney disease; M19.90 Unspecified osteoarthritis, unspecified site; Z96.1 Presence of intraocular lens; F32.9 Major depressive disorder, single episode, unspecified; Z85.3 Personal history of malignant neoplasm of breast; Z90.11 Acquired absence of right breast and nipple; Z90.49 Acquired absence of other specified parts of digestive tract; Z79.899 Other long term (current) drug therapy; Z79.82 Long term (current) use of aspirin; Z79.4 Long term (current) use of insulin; Z88.8 Allergy status to other drugs, medicaments and biological substances; Z87.891 Personal history of nicotine dependence; Z95.0 Presence of cardiac pacemaker
CPT/HCPCS: 36415; 36416; 51701; 71045; 71275; 80048; 80053; 81003; 81015; 82550; 82553; 82728; 83605; 83690; 83880; 84484; 85025; 85379; 86140; 86769; 87040; 87635; 93005; 96361; 96365; 96367; 96372; 96375; 99283; J0456; J0696; J1100; J1650; J1815; J2405; J3370; J3490; J7050; J8540; Q9967; U0002; U0003